=== PATIENT | female | born 1980 | race Caucasian/White ===

== ENCOUNTER 2020-08-11 10:14 | Emergency (ER) | payer OTHER, SELFPAY ==
--- NOTE | ~2020-08-11 | US_ITS ---
EXAMINATION: US pelvic complete w TV EXAM DATE: 08/11/2020 14:51 INDICATION: Pelvic pain. Abnormal CT. TECHNIQUE: Pelvic transabdominal and transvaginal sonogram was performed. There are multiple graysca le and Doppler images available for interpretation. Comparison is made to prior examination from 07/26. FINDINGS: Uterus measures 8.9 x 4.9 x 4.1 cm, and is morphologically normal. Endometrial stripe clem sures 8 mm, within normal limits. There is no free pelvic fluid. Right adnexa: The ovary measures 3.9 x 3.9 x 3.6 cm and is morphologically normal, contains the domin ant physiologic follicle correlating to the CT finding. Ovarian vascular flow confirmed. Left adnexa: The ovary measures 2.3 x 2.4 x 1.7 cm and is morphologically normal. Ovarian vascular fl ow confirmed. IMPRESSION: 1. Unremarkable pelvic ultrasound exam. Reviewed, dictated and finalized at location A. 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
--- NOTE | ~2020-08-11 | CT_ITS ---
EXAMINATION: CT abdomen pelvis w con DATE: 08/11/2020 12:40 INDICATION: Low abdominal pain. Diarrhea. TECHNIQUE: Computed tomography (CT) of the abdomen and pelvis was performed with 100 mL Omnipaque 350 intravenous contrast. Automated exposure control and iterative reconstruction technique were employe d. The dose-length product was 819.03 mGy-cm. COMPARISON: CT abdomen and pelvis 02/14/2012 FINDINGS: The visualized portions of the lung bases are clear without pneumonia or pleural effusion. The heart size is normal. No pericardial effusion. The liver, gallbladder, pancreas, and left adrenal gland are normal. There is a chronic 13 mm mass in right adrenal gland, likely an adenoma. There is a chronic 4 mm low-attenuation mass in the spleen, likely granulomatous disease. The kidneys are norm al. There is a 3.3 cm mass in right ovary. There are no dilated loops of bowel. The appendix is sukhwinder l. There is trace pelvic ascites. There are no pathologically enlarged lymph nodes. There is mild lum bar spondylosis. IMPRESSION: 1. 3.3 cm mass in right ovary, likely a hemorrhagic cyst. Consider ultrasound. Reviewed, dictated and finalized at location A. 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
[2020-08-11 10:25] VITALS: BP 140/101; PULSE 80; RESP 20; TEMP 36.7; O2SAT 97
[2020-08-11 10:43] LABS: Basophils Percent Auto 0.4 % (0.2-1.2); Eosinophils Absolute Auto 0.2 K/mm3 (0-0.3); Eosinophils Percent Auto 1.7 % (0-4.4); Hemoglobin 16.1 g/dL (12.0-15.0); Immature Granulocyte Absolute 0.04 K/mm3 (0.00-0.031); Immature Granulocyte Percent A 0.4 % (0-0.5); Lymphocytes Absolute Auto 3.25 K/mm3 (0.9-3.2); Lymphocytes Percent Auto 32.1 % (18.3-44.2); Mean Corpuscular Hemoglobin 33.1 pg (26-34); Mean Corpuscular Volume 94.5 fl (80-100); Mean Platelet Volume 11.1 fl (7.4-10.4); Monocytes Absolute Auto 0.9 K/mm3 (0.1-0.6); Monocytes Percent Auto 9.1 % (2.6-8.5); Neutrophils Absolute Auto 5.7 K/mm3 (1.3-6.7); Neutrophils Percent Auto 56.3 % (45.5-73.1); Platelet Count Result 258 k/mm3 (150-375); Red Blood Count 4.87 M/mm3 (4.2-5.4); White Blood Count 10.1 K/mm3 (4.5-10.0)
[2020-08-11 10:52] LABS: Add Urine Microscopic? NO; Appearance Urine Clear (Clear); Bilirubin Urine Negative (Negative); Blood Urine Negative (Negative); Color Urine Yellow (Yellow); Glucose Urine UA Negative (Negative); Ketones Urine Negative (Negative); Leukocyte Esterase Ur Negative LEU/UL (Negative); Nitrate Urine Negative (Negative); Protein Urine Negative (Negative); Specific Grav Ur 1.017 (1.001-1.035); Urobilinogen Urine Negative mg/dL (<2.0)
[2020-08-11 10:52] LABS: Alanine Aminotransferase 24 U/L (4-35); Albumin Level 4.3 g/dL (3.5-5.1); Alkaline Phosphatase 76 U/L (38-126); Anion Gap 7 mmol/L (8-16); Aspartate Amino Transferase 24 U/L (14-36); Bilirubin,Total 0.3 mg/dL (0.2-1.3); Blood Urea Nitrogen 20 mg/dL (7-17); Calcium 9.4 mg/dL (8.4-10.2); Carbon Dioxide 23 mmol/L (22-30); Chloride 106 mmol/L (98-107); Estimated CRCL calculation 68 ml/min; Estimated Glomerular Filt Rate > 60; Glucose 106 mg/dL (65-105); Lipase 76 U/L (23-300); Potassium 4.9 mmol/L (3.4-5.0); Sodium 136 mmol/L (137-145)
[2020-08-11] MEDS: ONDANSETRON INJ 4 MG/2 ML VIAL IV PUSH (11:24)
[2020-08-11 12:30] VITALS: BP 137/96; PULSE 79; RESP 18; O2SAT 100
--- NOTE | 2020-08-11 15:09 | ED.GENADULT ---
HPI - General Adult General Chief complaint: Abdominal Pain Stated complaint: abd pain Time Seen by Provider: 08/11/20 10:40 Source: patient Mode of arrival: ambulatory Limitations: no limitations History of Present Illness HPI narrative: Patient presents with chief complaint of diffuse lower abdominal pain and diarrhea that began last night and increased at 3 AM to 930 this morning. Patient states she experiencing left cramping and pressure that relieves after a bowel movement. Patient states that her stools are liquid. Patient reports that she has not had any recent travel or eating any abnormal foods. Patient states that she ate the same thing as her that he is not ill. She denies fever, chills, vomiting, shortness of breath or chest pain. Patient reports that her primary care has diagnosed her with dumping syndrome which she occasionally has a lot of stool but she states that she feels that her symptoms this time are different. Related Data Allergies Allergy/AdvReac Type Severity Reaction Status Date / Time No Known Allergies Allergy Verified 08/11/20 15:16 Review of Systems Review of Systems: Narrative: CONSTITUTIONAL: Denies fever, chills, or sweats. EYES: Denies visual changes, redness, or discharge. ENT: Denies rhinorrhea, congestion, sore throat, or otalgia. CARDIOVASCULAR: Denies chest pain, palpitations, or edema. RESPIRATORY: Denies cough or dyspnea. GASTROINTESTINAL: Reports abdominal pain, nausea, or diarrhea. Denies vomiting GENITOURINARY: Denies dysuria or hematuria. SKIN: Denies rash or itching. MUSCULOSKELETAL: Denies back pain, joint pain, or myalgia. NEUROLOGIC: Denies headache, numbness, dizziness, or weakness. PSYCHIATRIC: Denies anxiety or depression. PMFSH Past Medical History Medical History (Updated 08/11/20 @ 15:16 by Erickson Green PA-C) Anxiety Irritable bowel Exam Narrative: Exam Narrative: GENERAL: Well-appearing, well-nourished, and in no acute distress. HEAD: Normocephalic, atraumatic. EYES: PERRLA and EOMI. NECK: Supple. No adenopathy or masses. No carotid bruits or JVD CHEST: Clear to auscultation. No respiratory distress. No wheezes rales or rhonchi HEART: Regular rate and rhythm. No murmur heard. Normal peripheral pulses. ABDOMEN: Soft, diffuse lower abdominal tenderness, nondistended, hyperactive active bowel sounds. EXTREMITIES: Normal range of motion. No edema. SKIN: Warm, dry, no rash. NEURO: No focal deficits. Alert and oriented x3. PSYCH: Normal mood and affect. Course Vital Signs Vital signs: Vital Signs Temperature 98.0 F 08/11/20 10:25 Pulse Rate 80 08/11/20 10:25 Respiratory Rate 20 08/11/20 10:25 Blood Pressure 140/101 H 08/11/20 10:25 Pulse Oximetry 97 08/11/20 10:25 Temperature 98.0 F 08/11/20 10:25 Pulse Rate 80 08/11/20 10:25 Respiratory Rate 20 08/11/20 10:25 Blood Pressure 140/101 H 08/11/20 10:25 Pulse Oximetry 97 08/11/20 10:25 Medical Decision Making MDM Narrative Medical decision making narrative: Patient reporting improvement in discomfort and nausea with Tylenol and Zofran however she persists that lower abdominal discomfort and pressure persist so she would like to have CT abdomen pelvis performed. CT abdomen pelvis does not show any colonic acute issues but does show possible right ovarian cyst. Consult with Dr. Evelyne Menjivar who states to obtain ultrasound to further investigate. He states if there are not any significant complications patient should be discharged home. Patient's ultrasound is normal. Patient will be diagnosed with gastroenteritis and given Zofran and Bentyl for symptoms and encouraged to drink fluids and follow-up with her primary care. Upon entering the room to discharge patient as the that she is in the bed eating fries and drinking soda. She has not had any additional diarrhea or vomiting since her time in emergency department. Patient is instructed to follow-up with her primary c
[2020-08-11 15:13] VITALS: BP 141/86; PULSE 82; RESP 18; O2SAT 100
[2020-08-12 00:04] LABS: SARS-CoV-2 RNA PCR Negative
== END 2020-08-11 15:42 | disposition home or self-care (01) ==
PROVIDERS: Physician Assistant; Emergency Provider Emergency Medicine; Referring Provider Internal Medicine
DX: K52.9 Noninfective gastroenteritis and colitis, unspecified (principal); Z20.828 Contact with and (suspected) exposure to other viral communicable diseases; K31.89 Other diseases of stomach and duodenum; N83.9 Noninflammatory disorder of ovary, fallopian tube and broad ligament, unspecified
CPT/HCPCS: 36415; 74177; 76830; 76856; 80053; 81003; 81025; 83690; 85025; 87635; 96365; 96375; 99284; C9803; J0131; J2405; Q9967; U0003

== ENCOUNTER 2020-09-30 09:39 | Outpatient (CLI) | payer OTHER, SELFPAY ==
--- NOTE | ~2020-09-30 | NM_ITS ---
EXAMINATION: NM hepatobiliary w pharm DATE: 09/30/2020 12:47 INDICATION: Unspecified abdominal pain. COMPARISON: CT abdomen and pelvis 08/11/2020 TECHNIQUE: 4.8 mCi Tc-99m mebrofenin (Choletec) was administered intravenously. Scintigraphic images of the abdomen were obtained for one hour. Then, 1.7 mcg sincalide (Kinevac) IV was administered, an d imaging was continued for 30 minutes. FINDINGS: There is normal clearance of radiotracer from the blood pool. There is homogeneous tracer u ptake by the liver. Activity progresses to the bowel and gallbladder. Gallbladder ejection fraction (GBEF) was 49%. Note that most patients with gallbladder dysfunction have GBEF < 35%, which overlaps with the broad normal range of 10-90%. IMPRESSION: 1. Normal hepatobiliary scintigraphy. Reviewed, dictated and finalized at location A. 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
== END 2020-09-30 09:40 | disposition home or self-care (01) ==
PROVIDERS: PCP Nurse Practitioner Adult Health; Visit Provider Nurse Practitioner Adult Health
DX: R10.9 Unspecified abdominal pain (principal)
CPT/HCPCS: 78227; A9537; J2805

== ENCOUNTER → 2021-01-22 15:45 | Outpatient (CLI) | payer OTHER, SELFPAY ==
--- NOTE | ~2021-01-22 | MM_ITS ---
EXAMINATION: MM screening armando BI w matheus HISTORY: Screening mammogram TECHNIQUE: Craniocaudal and mediolateral oblique 3-D tomosynthesis images were obtained and synthetic 2-D images were generated. CAD analysis was submitted and interpreted. COMPARISON: No prior mammogram is available for comparison at this institution. BREAST PARENCHYMAL COMPOSITION: There are scattered areas of fibroglandular density. FINDINGS: There is no evidence of suspicious mass, calcification, or architectural distortion to sugg est malignancy in either breast. IMPRESSION: 1. No mammographic evidence of malignancy. 2. Recommend routine screening mammography in one year. BI-RADS Category 1: Negative Reviewed, dictated and finalized at location A.
== END ==
PROVIDERS: PCP Nurse Practitioner Adult Health; Visit Provider Nurse Practitioner Adult Health
DX: Z12.31 Encounter for screening mammogram for malignant neoplasm of breast (principal)
CPT/HCPCS: 77063; 77067

== ENCOUNTER → 2021-10-21 01:19 | Outpatient (CLI) | payer OTHER, SELFPAY ==
[2021-10-21 18:23] LABS: SARS-CoV-2 RNA PCR Negative
== END ==
PROVIDERS: PCP Nurse Practitioner Adult Health; Visit Provider Nurse Practitioner Adult Health
DX: R68.89 Other general symptoms and signs (principal); Z20.822 Contact with and (suspected) exposure to COVID-19
CPT/HCPCS: C9803; U0003; U0005

== ENCOUNTER 2022-01-15 18:16 | Emergency (ER) | payer OTHER, SELFPAY ==
[2022-01-15 18:25] VITALS: BP 168/102; PULSE 89; RESP 18; TEMP 36.7; O2SAT 99
--- NOTE | 2022-01-15 18:31 | ED.URI ---
HPI - URI/Sore Throat General Chief Complaint: Upper Respiratory Infection Stated Complaint: Cough,Sore Throat Time Seen by Provider: 01/15/22 18:31 Source: patient Mode of arrival: ambulatory Limitations: no limitations History of Present Illness HPI Narrative: Jill Jessica is a 41 yo female with a PMH of HTN, migraines,anxiety, who comes to express care with c/o laryngitis and sore throat, coughing, can't sleep that started yesterday. Patient has secondary smoke exposure however told nurse that she also vapes However blood pressure is elevated; she did take her blood pressure medication today Related Data Home Medications Medication Instructions Recorded Confirmed amitriptyline 25 mg PO DAILY 01/15/22 01/15/22 amlodipine 5 mg PO DAILY 01/15/22 01/15/22 golimumab [Simponi ARIA] See Rx Instructions .ROUTE .COMPLEX 01/15/22 01/15/22 lisinopril 20 mg PO DAILY 01/15/22 01/15/22 methotrexate sodium 2.5 mg PO DAILY 01/15/22 01/15/22 Allergies Allergy/AdvReac Type Severity Reaction Status Date / Time hydroxychloroquine AdvReac Severe Hypertensio Verified 01/15/22 18:42 [From Plaquenil] n tramadol AdvReac Mild NAUSEA & Verified 01/15/22 18:40 HEADACHE Chocolate AdvReac Mild Rash Uncoded 01/15/22 18:40 Review of Systems Review of Systems: CONSTITUTIONAL: Denies fever, chills, sweats. EYES: Denies visual changes, redness, discharge. ENT: Denies rhinorrhea, has congestion, has sore throat, sores in her nose, no otalgia. CARDIOVASCULAR: Denies chest pain, palpitations, edema. RESPIRATORY: Denies dyspnea, wheezing, cough GASTROINTESTINAL: Denies abdominal pain, nausea, vomiting, diarrhea. GENITOURINARY: Denies dysuria, hematuria, abnormal discharge SKIN: Denies rash or itching. NEUROLOGIC: Denies numbness, or focal weakness. PSYCHIATRIC: Denies anxiety or depression. [facility] Past Medical History Medical History Anxiety Hypertension Irritable bowel Migraine Comments At time of signature, I agree with nursing past medical, surgical, social and family history. There is no relevant family history pertinent to the presenting complaint. Exam Narrative: GENERAL: This is a well-nourished, well-developed patient, in moderate distress. HEAD: normocephalic, atraumatic. EYES: Sclera clear/white. Vision is grossly intact. EARS: External ears normal, auditory canals wrythema with fluid behind TMs and without drainage, . Hearing grossly intact. NOSE: External nose normal without nasal discharge, nares with redness,has rhinorrhea. THROAT: Mucous membranes moist, posterior pharynx bright erythema NECK: Neck supple, non-tender CARDIOVASCULAR: Regular rate and rhythm without murmurs, gallops, or rubs. RESPIRATORY: Coarse to auscultation. Breath sounds equal bilaterally. No wheezes, rales, or rhonchi. GASTROINTESTINAL: Abdomen soft, non-tender, SKIN: warm, intact with no suspicious lesions or rash, good texture and turgor. NEURO: awake, alert, and oriented to person, place and time. There were no obvious focal neurologic abnormalities. Steady gait EXTREMITIES: Normal range of motion. BACK: Nontender without deformity Course Course Emergency Course: Patient comes with cough and sore throat x4 days and is not getting any better Strep test is negative, flu test is negative Started on steroids and Zithromax along with Tessalon Perles, continue use triple antibiotic ointment and nares for tenderness Level of Care: Express Care Visit Vital Signs Vital signs: Vital Signs Temperature 98.1 F 01/15/22 18:25 Pulse Rate 89 01/15/22 18:25 Respiratory Rate 18 01/15/22 18:25 Blood Pressure 168/102 H 01/15/22 18:25 Pulse Oximetry 99 01/15/22 18:25 Temperature 98.1 F 01/15/22 18:25 Pulse Rate 89 01/15/22 18:25 Respiratory Rate 18 01/15/22 18:25 Blood Pressure 168/102 H 01/15/22 18:25 Pulse Oximetry 99 01/15/22 18:25 MDM - URI/Sore
== END 2022-01-15 18:59 | disposition home or self-care (01) ==
PROVIDERS: Emergency Provider Nurse Practitioner; PCP Nurse Practitioner Adult Health
DX: J40 Bronchitis, not specified as acute or chronic (principal); I10 Essential (primary) hypertension
CPT/HCPCS: 87081; 87804; 87880; 99213; G0463

== ENCOUNTER 2022-05-16 01:01 | Day surgery (SDC) | payer OTHER, SELFPAY ==
[2022-05-16 07:19] VITALS: BP 125/82; PULSE 99; RESP 18; TEMP 36.2; O2SAT 98; BMI 30.5
[2022-05-16] MEDS: LACTATED RINGERS 1,000 ML 150 ML IV CONT (07:27)
--- NOTE | 2022-05-16 08:10 | WPDANESEPPF ---
Anes - Initial Pre Proc Eval Procedure: Operation Date: 05/16/22 08:30 Proposed Procedures p Colonoscopy - Oscar Moon MD s [facility] Hemorrhoid Treatment - Oscar Moon MD Date/Time: 05/16/22 08:10 Surgeon: Oscar Moon MD Pre Op Diagnosis: blood in stool, hemorrhoid Patient Data Age: 42 Gender: F Height: 1.65 m Weight: 83.3 kg Last Vital Signs Temp 97.1 F L 05/16/22 07:19 Pulse 99 05/16/22 07:19 Resp 18 05/16/22 07:19 BP 125/82 05/16/22 07:19 Pulse Ox 98 05/16/22 07:19 O2 Del Method Room Air 05/16/22 07:19 Allergies Allergy/AdvReac Type Severity Reaction Status Date / Time hydroxychloroquine AdvReac Severe Hypertensio Verified 05/16/22 07:18 [From Plaquenil] n tramadol AdvReac Mild NAUSEA & Verified 05/16/22 07:18 HEADACHE Chocolate AdvReac Mild Rash Uncoded 05/04/22 13:00 Home Medications Medication Instructions Recorded Confirmed Type amitriptyline 25 mg tablet 25 mg PO DAILY 01/15/22 05/04/22 History amlodipine 5 mg tablet 5 mg PO DAILY PRN Numbness 01/15/22 05/04/22 History lisinopril 20 mg tablet 20 mg PO DAILY 01/15/22 05/04/22 History methotrexate sodium 2.5 mg tablet 2.5 mg PO WEEKLY 01/15/22 05/04/22 History prednisone 20 mg tablet 40 mg PO DAILY #10 tabs 01/15/22 05/04/22 Rx folic acid 0.8 mg capsule 0.8 mg PO DAILY 03/24/22 05/04/22 History Patient hx anesthesia problems: none Family hx anesthesia problems: none Results Review: All pre-operative results and documents have been reviewed as part of the pre-operative evaluation. COUNTS INCLUDE 234 BEDS AT THE [facility] Past Medical History Medical History (Updated 03/24/22 @ 10:00 by Oscar Moon MD) Abdominal discomfort Anxiety Bloating Hematochezia Hemorrhoid Hypertension Irritable bowel Migraine Rheumatoid arthritis Surgical History Surgical History H/O foot surgery Family History Family History Father Colon polyp Skin cancer Mother Colon polyp Social History Social History Smoking packs per day: 1 Smoking cigarettes per day: 20.0 Smoking status: Former smoker Tobacco type: cigarettes Alcohol intake: never Substance use: never Substance use type: does not use Anes - Eval Final PreProcedure Day of Procedure 05/16/22 08:10 Patient weight: obese Heart: regular rate and rhythm Lungs: clear to auscultation Airway: Mallampati scale class II Neurological: alert and oriented Last oral intake: >/= 8 hours ASA classification: III Emergent: no Anesthetic plan: proceed Anesthesia type and monitoring: general GIVS and standard monitoring Results Review: All pre-operative results and documents have been reviewed as part of the pre-operative evaluation. Informed Consent: The patient's anesthetic plan and its attendant risks and benefits were discussed with the patient/family/POA. Questions were solicited and answers provided to the satisfaction of the patient/family/POA.
--- NOTE | 2022-05-16 08:20 | PM.HPGS ---
History of Present Illness History of Present Illness Consent: Risks, benefits, and alternatives have been discussed and questions answered. Patient agrees to proceed with procedure. Chief complaint: blood in stool, hemorrhoid Narrative: Jill Jessica is a 42 year old female with intermittent pain luq, loose stools and also blood in stool probably from hemorrhoids, last colonoscopy 2 years ago Review of Systems Constitutional: Constitutional: Denies headache(s) and Denies weakness Eyes: Eyes: Denies blurry vision ENT: Reports Normal hearing present, Denies headache(s) and Denies neck pain Cardiovascular: Cardiovascular: Denies chest pain and Denies dyspnea Respiratory: Respiratory: Denies dyspnea Gastrointestinal: Gastrointestinal: Reports no additional gastrointestinal complaints Genitourinary: Genitourinary: Denies dysuria Musculoskeletal: Musculoskeletal: Denies neck pain Integumentary/Breasts: Skin/Breast: Denies dry skin Neurologic: Reports Normal hearing present, Denies headache(s) and Denies weakness Psychiatric: Psychiatric: Denies anxiety Endocrine: Endocrine: Denies change in body appearance Hematologic/Lymphatic: Hematologic/Lymphatic: Denies easy bleeding Allergic/Immunologic: Allergic/Immunologic: Denies urticaria PMFSH Past Medical History Medical History (Updated 05/16/22 @ 08:21 by Oscar Moon MD) Abdominal discomfort Anxiety Bloating Diarrhea Hematochezia Hemorrhoid Hypertension Irritable bowel Migraine Rheumatoid arthritis Surgical History Surgical History H/O foot surgery Family History Family History Father Colon polyp Skin cancer Mother Colon polyp Social History Social History Smoking packs per day: 1 Smoking cigarettes per day: 20.0 Smoking status: Former smoker Tobacco type: cigarettes Alcohol intake: never Substance use: never Substance use type: does not use Meds Home Medications and Allergies Home Medications Medication Instructions Recorded Confirmed Type amitriptyline 25 mg tablet 25 mg PO DAILY 01/15/22 05/04/22 History amlodipine 5 mg tablet 5 mg PO DAILY PRN Numbness 01/15/22 05/04/22 History lisinopril 20 mg tablet 20 mg PO DAILY 01/15/22 05/04/22 History methotrexate sodium 2.5 mg tablet 2.5 mg PO WEEKLY 01/15/22 05/04/22 History prednisone 20 mg tablet 40 mg PO DAILY #10 tabs 01/15/22 05/04/22 Rx folic acid 0.8 mg capsule 0.8 mg PO DAILY 03/24/22 05/04/22 History Allergies Allergy/AdvReac Type Severity Reaction Status Date / Time hydroxychloroquine AdvReac Severe Hypertensio Verified 05/16/22 07:18 [From Plaquenil] n tramadol AdvReac Mild NAUSEA & Verified 05/16/22 07:18 HEADACHE Chocolate AdvReac Mild Rash Uncoded 05/04/22 13:00 Vital Signs Vital Signs - 24 hr 05/16/22 07:19 Temperature 97.1 F L Pulse Rate 99 Respiratory Rate 18 Blood Pressure 125/82 Pulse Oximetry 98 Oxygen Delivery Room Air Exam Const: General: comfortable and no acute distress HENMT: General nose exam: Normal nares present Eyes: General: appearance normal, both eyes and all related structures Neck: Neck: no JVD Resp: Auscultation: clear to auscultation bilaterally Cardio: Rate: regular rate Rhythm: regular rhythm GI: Inspection: non-distended GI Palp: Yes Soft to palpation Skin: General skin exam: normal color Neuro: General: gait normal Speech: normal speech Extrem: General: normal to inspection Psych: Mental Status: mental status grossly normal Assessment and Plan Assessment and plan (1) Hemorrhoid: Code(s): K64.9 - Unspecified hemorrhoids Status: Acute Assessment and Plan: will treat internal hemorrhoids with irc (2) Diarrhea: Code(s): R19.7 - Diarrhea, unspecif
--- NOTE | 2022-05-16 08:57 | W.PM.PROC2 ---
Procedure Note - Detailed Date of Procedure 05/16/22 Pre-op Diagnosis blood in stool, hemorrhoid Post-op Diagnosis Same Procedure Performed IRC of internal hemorrhoids Surgeon Oscar Moon MD Description of Procedure I introduced anoscopy and found grade II internal hemorrhoids at 3-6 o'clock position, then IRC probe was advanced and hemorrhoids treated 1.5 seconds x6
[2022-05-16 08:58] VITALS: BP 113/80; PULSE 69; RESP 22; O2SAT 97
[2022-05-16 09:08] VITALS: BP 115/68; PULSE 66; RESP 21; O2SAT 97
[2022-05-16 09:18] VITALS: BP 109/76; PULSE 65; RESP 19; O2SAT 98
== END 2022-05-16 09:25 | disposition home or self-care (01) ==
PROVIDERS: PCP Nurse Practitioner Adult Health; Visit Provider Internal Medicine Gastroenterology
PROC: 0DJD8ZZ Inspection of Lower Intestinal Tract, Via Natural or Artificial Opening Endoscopic (ICD-10-PCS; CPT 45378; principal; 2022-05-16 08:30)
PROC: (CPT 46930; 2022-05-16 08:30)
DX: Z12.11 Encounter for screening for malignant neoplasm of colon (principal); D12.3 Benign neoplasm of transverse colon; K92.1 Melena; R19.7 Diarrhea, unspecified; R10.12 Left upper quadrant pain; K64.8 Other hemorrhoids; F41.9 Anxiety disorder, unspecified; I10 Essential (primary) hypertension; K58.9 Irritable bowel syndrome, unspecified; Z87.891 Personal history of nicotine dependence; K64.1 Second degree hemorrhoids
CPT/HCPCS: 45385; 45380; 46930; 88305; J2704; J7120

== ENCOUNTER 2023-05-18 08:27 | Outpatient (CLI) | payer OTHER, SELFPAY ==
--- NOTE | 2023-05-18 08:55 | ECG_ITS ---
Measurements Intervals [place] Rate: 67 P: 57 OR: 135 QRS: 51 QRSD: 112 T: 35 QT: 395 QTc: 418 Interpretive Statements SINUS RHYTHM LOW QRS VOLTAGE IN PRECORDIAL LEADS [QRS DEFLECTION < 1.0 mV IN CHEST LEADS] PROBABLE INFERIOR MYOCARDIAL INFARCTION [35 ms Q WAVE IN II/aVF], PROBABLY OLD NO PREVIOUS ECG AVAILABLE FOR COMPARISON Electronically Signed On 05-18-2023 11:01:35 CDT by Pam Donovan M.D.
== END 2023-05-18 08:28 | disposition home or self-care (01) ==
LOC: ANHSURGERY 08:30
PROVIDERS: PCP Nurse Practitioner Adult Health; Visit Provider Obstetrics & Gynecology
DX: N39.3 Stress incontinence (female) (male) (principal); Z01.818 Encounter for other preprocedural examination
CPT/HCPCS: 36415; 86850; 86900; 86901; 93005

== ENCOUNTER 2023-05-19 00:22 | Day surgery (SDC) | payer OTHER, SELFPAY ==
[2023-05-16 08:45] VITALS: BMI 31.1
--- NOTE | 2023-05-16 08:50 | PC.NURSE ---
Addendum entered by Michelle Rosas RN 05/18/23 08:41: PT INSTRUCTED WHILE HERE FOR PREOP TESTING 05/18 TO TAKE PROPANOLOL PREOP DAY OF SURGERY. Original Note: Report to the Outpatient Waiting Room, entrance under the green pavilion located off [facility], at time _0600_ on date _05/19/23. Planned Procedure Time: __0730. Time changes happen often and if your time is changed the preop area will call you the afternoon before. - You and your visitor will be asked to self-screen and do not enter if you have any COVID symptoms. - A mask is optional within the hospital at this time. Patients may have clear liquids (water, carbonated beverages, clear teas, apple juice) until 3 hours prior to surgery with a maximum of 20 ounces. - No food from midnight until time of surgery - Infants may have breast milk until 4 hours before surgery, infant formula 6 hours prior to surgery. - Children will be allowed to drink immediately following surgery. If applicable, please bring a bottle or sippy cup to assist with drinking. Juice, water, soda, and popsicles are readily available. For infants on formula, please bring formula the day of surgery. Pacifiers are allowed. Take the following medications with a SIP of water the morning of surgery: NONE____ DO NOT STOP ANY OF YOUR OTHER PRESCRIPTION MEDICATIONS PRIOR TO SURGERY ?EXCEPT THE FOLLOWING Medications to discontinue per physician FOLIC ACID Date to take last dose____05/16/23____ Please no make-up, nail bulgarian, hairspray, perfume, deodorant, or body powder the day of surgery. No jewelry (including any body piercings) or valuables the day of surgery, leave them at home. Please take a shower or bath the night before, or the morning of, surgery with an antibacterial soap. Wear comfortable, loose fitting clothing. Children are encouraged to wear pajamas. - Jewelry must be removed prior to entering the operating room. Rings and piercings that are not removed may be cut off. - The hospital will not accept responsibility for valuables. - Please leave all valuables, including medications, at home the day of surgery. If you are going home after surgery, a licensed full service vending driver must drive you home. - NO public transportation without another adult if you receive anesthesia. - We recommend that an adult stay with you for 24 hours following discharge. - We also recommend that you do not drive, make important decision, drink alcoholic beverages, or take any drugs that were not prescribed by your health care provider for at least 24 hours after your discharge time. For Pediatric surgeries, we recommend two adults accompany the child home. Follow any additional instructions given to you from your surgeon. If you or anyone in your household have experienced Covid symptoms in the past week, please notify your surgeon or the nurse liaison at the phone number below for possible testing. Telephone instructions given to ____PATIENT _and asked if any additional questions and then verbalized understanding. Patient advised to call surgeon office or pre surgery nurse liaison [phone] if any additional questions.
--- NOTE | 2023-05-17 06:52 | PM.IMHP ---
H&P: HPI History of Present Illness Date/Time: 05/17/23 06:52 Chief Complaint: Loss of urine with activity Narrative: This is a 2-year-old female admitted for tension-free vaginal tape to secondary to stress urinary incontinence. The patient loses urine with coughing laughing sneezing. She has tried Kegel exercises and nothing has been helpful. Risks and benefits of this procedure including mesh removed in injury bowel bladder ureters or other internal organs with need for open laparotomy reviewed. She received the tension-free vaginal tape and out. She had all questions answered and asked to proceed PMFSH Past Medical History Medical History Abdominal discomfort Anxiety Bloating Diarrhea Hematochezia Hemorrhoid Hypertension Irritable bowel Migraine Rheumatoid arthritis Rheumatoid arthritis Surgical History Surgical History H/O foot surgery Family History Family History Father Colon polyp Skin cancer Hypertension Disorder of thyroid Cerebrovascular accident Mother Colon polyp Asthma Heart disease COPD (chronic obstructive pulmonary disease) Son Hypertension Grandparent EtOH dependence Lung cancer Hypertension Grandparent Cerebrovascular accident Social History Social History Social History: Smoking packs per day: 1 Smoking cigarettes per day: 20.0 Years smoked: 10 Smoking pack-years: 10.00 Smoking status: Former smoker Second hand tobacco smoke exposure: No Alcohol intake: former Substance use: never Lack of Transportation: No Lack of Food: Never True Current Housing: I Have Housing Concerned About Future Housing: No Difficulty Paying Gas/Electric Bills: No Difficulty Paying for Meds: No Currently Unemployed: No Education: Decline to Answer Difficulty w/ Childcare or Family Care: No Living arrangements: with family Occupation/Education: occupation 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 Gender identity (if verbalized by the patient): Female Sexual Orientation (if Verbalized by the Patient): Straight or Heterosexual Agree to blood products: Yes Meds Home Medications and Allergies Home Medications Medication Instructions Recorded Confirmed Type lisinopril 20 mg tablet 20 mg PO DAILY 01/15/22 12/29/22 History amlodipine 5 mg tablet 5 mg PO .PM #90 tabs 12/29/22 12/29/22 Rx cyclobenzaprine 10 mg tablet 10 mg PO QHS 12/29/22 12/29/22 History folic acid 1 mg tablet 1 mg PO DAILY 12/29/22 12/29/22 History golimumab 12.5 mg/mL intravenous IV 12/29/22 12/29/22 History solution prednisone 5 mg tablet 15 mg PO DAILY PRN Pain 12/29/22 12/29/22 History phentermine 37.5 mg tablet 37.5 mg PO DAILY #30 tabs 04/20/23 04/20/23 Rx propranolol 40 mg tablet 40 mg PO Q12H #90 tabs 04/20/23 Rx methotrexate sodium 2.5 mg tablet 12.5 mg PO WEEKLY 05/16/23 05/16/23 History Allergies Allergy/AdvReac Type Severity Reaction Status Date / Time NSAIDS (Non-Steroidal Allergy Severe stomach Verified 04/20/23 10:35 Anti-Inflamma bleed hydroxychloroquine AdvReac Severe Hypertensio Verified 04/20/23 10:35 [From Plaquenil] n Chocolate AdvReac Mild Rash Uncoded 04/20/23 10:35 Exam Const: General: cooperative, healthy appearing and comfortable Nutritional Appearance: average body habitus Orientation/consciousness: oriented to person, oriented to place and oriented to time HENMT: Head: normal to inspection Resp: Effort & Inspection: normal respiratory effort Cardio: Rate: regular rate Rhythm: regular rhythm Heart sounds: S1 normal heart sound present and S2 normal heart sound present GI: Inspection: normal to inspection : External Female Exam: normal external appear
--- NOTE | 2023-05-18 11:51 | WPDANESEPPF ---
Anes - Initial Pre Proc Eval Procedure: Operation Date: 05/19/23 07:30 Proposed Procedures p Tension Free Vaginal Taping - Dangelo Menjivar MD Date/Time: 05/18/23 11:51 Surgeon: Dangelo Menjivar MD Pre Op Diagnosis: OLIVIA Patient Data Age: 43 Gender: F Height: 1.65 m Weight: 85 kg Allergies Allergy/AdvReac Type Severity Reaction Status Date / Time NSAIDS (Non-Steroidal Allergy Severe stomach Verified 05/19/23 06:19 Anti-Inflamma bleed hydroxychloroquine AdvReac Severe Hypertensio Verified 05/19/23 06:19 [From Plaquenil] n Chocolate AdvReac Mild Rash Uncoded 05/19/23 06:19 Home Medications Medication Instructions Recorded Confirmed Type lisinopril 20 mg tablet 20 mg PO DAILY 01/15/22 05/19/23 History amlodipine 5 mg tablet 5 mg PO .PM #90 tabs 12/29/22 05/19/23 Rx cyclobenzaprine 10 mg tablet 10 mg PO QHS 12/29/22 05/19/23 History folic acid 1 mg tablet 1 mg PO DAILY 12/29/22 05/19/23 History golimumab 12.5 mg/mL intravenous IV 12/29/22 12/29/22 History solution prednisone 5 mg tablet 15 mg PO DAILY PRN Pain 12/29/22 05/19/23 History phentermine 37.5 mg tablet 37.5 mg PO DAILY #30 tabs 04/20/23 05/19/23 Rx methotrexate sodium 2.5 mg tablet 12.5 mg PO WEEKLY 05/16/23 05/17/23 History propranolol 40 mg tablet 40 mg PO Q12H PRN migraines 05/17/23 05/19/23 History hydrocodone 5 mg-acetaminophen 325 1 tablet PO Q4H PRN pain #20 tabs 05/19/23 Rx mg tablet Patient hx anesthesia problems: none Family hx anesthesia problems: none Results Review: All pre-operative results and documents have been reviewed as part of the pre-operative evaluation. [facility] Past Medical History Medical History Abdominal discomfort Anxiety Bloating Diarrhea Hematochezia Hemorrhoid Hypertension Irritable bowel Migraine Rheumatoid arthritis Rheumatoid arthritis Surgical History Surgical History H/O foot surgery Family History Family History Father Colon polyp Skin cancer Hypertension Disorder of thyroid Cerebrovascular accident Mother Colon polyp Asthma Heart disease COPD (chronic obstructive pulmonary disease) Son Hypertension Grandparent EtOH dependence Lung cancer Hypertension Grandparent Cerebrovascular accident Social History Social History Social History: Smoking packs per day: 1 Smoking cigarettes per day: 20.0 Years smoked: 10 Smoking pack-years: 10.00 Smoking status: Former smoker Second hand tobacco smoke exposure: No Alcohol intake: former Substance use: never Lack of Transportation: No Lack of Food: Never True Current Housing: I Have Housing Concerned About Future Housing: No Difficulty Paying Gas/Electric Bills: No Difficulty Paying for Meds: No Currently Unemployed: No Education: Decline to Answer Difficulty w/ Childcare or Family Care: No Living arrangements: with family Occupation/Education: occupation 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 Gender identity (if verbalized by the patient): Female Sexual Orientation (if Verbalized by the Patient): Straight or Heterosexual Agree to blood products: Yes Anes - Eval Final PreProcedure Day of Procedure 05/18/23 11:51 Patient weight: obese Heart: regular rate and rhythm Lungs: clear to auscultation Airway: Mallampati scale class II Neurological: alert and oriented Last oral intake: >/= 8 hours ASA classification: III Emergent: no Anesthetic plan: proceed Anesthesia type and monitoring: general LMA and standard monitoring Results Review: All pre-operative results and documents have been reviewed as part of the pre-operative evaluation. Informed Consent: The patient's anesthetic plan and its attendan
[2023-05-19] VITALS (10 sets, daily range): BP systolic 105–148; BP diastolic 51–94; PULSE 60–98; RESP 15–20; TEMP 36.4–36.7; O2SAT 95–100
--- NOTE | 2023-05-19 06:27 | WPDHPUPDATE1 ---
History and Physical Update Update Date/Time: 05/19/23 06:27 History and Physical has been reviewed, including an updated exam of the patient. There are NO changes in the patient's condition. Risks, benefits, and alternatives have been discussed and questions answered. Patient agrees to proceed with procedure.
[2023-05-19] MEDS: LACTATED RINGERS 1,000 ML 30 ML IV CONT ×2 (06:29→09:23)
--- NOTE | 2023-05-19 06:42 | WPDANESEPPF ---
Anes - Initial Pre Proc Eval Procedure: Operation Date: 05/19/23 07:30 Proposed Procedures p Tension Free Vaginal Taping - Dangelo Menjivar MD Date/Time: 05/19/23 06:42 Surgeon: Dangelo Menjivar MD Pre Op Diagnosis: OLIVIA Patient Data Age: 43 Gender: F Height: 1.65 m Weight: 91 kg Last Vital Signs Temp 36.4 C 05/19/23 06:15 Pulse 79 05/19/23 06:15 Resp 18 05/19/23 06:15 BP 132/78 05/19/23 06:15 Pulse Ox 100 05/19/23 06:15 O2 Del Method Room Air 05/19/23 06:15 Allergies Allergy/AdvReac Type Severity Reaction Status Date / Time NSAIDS (Non-Steroidal Allergy Severe stomach Verified 05/19/23 06:19 Anti-Inflamma bleed hydroxychloroquine AdvReac Severe Hypertensio Verified 05/19/23 06:19 [From Plaquenil] n Chocolate AdvReac Mild Rash Uncoded 05/19/23 06:19 Home Medications Medication Instructions Recorded Confirmed Type lisinopril 20 mg tablet 20 mg PO DAILY 01/15/22 05/19/23 History amlodipine 5 mg tablet 5 mg PO .PM #90 tabs 12/29/22 05/19/23 Rx cyclobenzaprine 10 mg tablet 10 mg PO QHS 12/29/22 05/19/23 History folic acid 1 mg tablet 1 mg PO DAILY 12/29/22 05/19/23 History golimumab 12.5 mg/mL intravenous IV 12/29/22 12/29/22 History solution prednisone 5 mg tablet 15 mg PO DAILY PRN Pain 12/29/22 05/19/23 History phentermine 37.5 mg tablet 37.5 mg PO DAILY #30 tabs 04/20/23 05/19/23 Rx methotrexate sodium 2.5 mg tablet 12.5 mg PO WEEKLY 05/16/23 05/17/23 History propranolol 40 mg tablet 40 mg PO Q12H PRN migraines 05/17/23 05/19/23 History hydrocodone 5 mg-acetaminophen 325 1 tablet PO Q4H PRN pain #20 tabs 05/19/23 Rx mg tablet Patient hx anesthesia problems: none Family hx anesthesia problems: none Results Review: All pre-operative results and documents have been reviewed as part of the pre-operative evaluation. [facility] Past Medical History Medical History Abdominal discomfort Anxiety Bloating Diarrhea Hematochezia Hemorrhoid Hypertension Irritable bowel Migraine Rheumatoid arthritis Rheumatoid arthritis Surgical History Surgical History H/O foot surgery Family History Family History Father Colon polyp Skin cancer Hypertension Disorder of thyroid Cerebrovascular accident Mother Colon polyp Asthma Heart disease COPD (chronic obstructive pulmonary disease) Son Hypertension Grandparent EtOH dependence Lung cancer Hypertension Grandparent Cerebrovascular accident Social History Social History Social History: Smoking packs per day: 1 Smoking cigarettes per day: 20.0 Years smoked: 10 Smoking pack-years: 10.00 Smoking status: Former smoker Second hand tobacco smoke exposure: No Alcohol intake: former Substance use: never Lack of Transportation: No Lack of Food: Never True Current Housing: I Have Housing Concerned About Future Housing: No Difficulty Paying Gas/Electric Bills: No Difficulty Paying for Meds: No Currently Unemployed: No Education: Decline to Answer Difficulty w/ Childcare or Family Care: No Living arrangements: with family Occupation/Education: occupation 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
[2023-05-19] MEDS: ceFAZolin 2 GM/D5W 50 ML 2 GM/50 ML BAG IVPB (07:25)
[2023-05-19] MEDS: KETOROLAC 30 MG/ML VIAL (*BKC) IV PUSH (07:46)
--- NOTE | 2023-05-19 07:55 | P.OP_ITS ---
Procedure Note - Detailed Date of Procedure 05/19/23 Pre-op Diagnosis OLIVIA Post-op Diagnosis Same Procedure Performed Tension-free vaginal tape/cystoscopy Surgeon Dangelo Menjivar MD Anesthesia General Indications This is a 43-year-old female with stress urinary incontinence Findings Hyper your active urethra. Description of Procedure Patient was prepped draped in normal sterile fashion placed in the dorsal li thotomy position. Under excellent LMA anesthesia weighted speculum placed in posterior fornix vagina. The midportion below the urethra was incised and about a cm incision. The lateral bladder spaces were entered by blunt dissection with a P on clamped bilaterally. An 18 [place]e catheter was placed in the bladder drained clear urine. Urethra was retracted laterally and the left retropubic bladder space entered at a 45 degree angle upto30? through the fascia and skin. The urethra was then retracted the opposite direction and the right retropubic bladder space entered a 45 degree angle upto30? through the fashion skin. The tape was then pulled up to the tightness of an open pee on clamped and the plastic removed. The tape at the suprapubic area was cut at the skin level and the 70degree cystoscope was inserted with no injury seen. The catheter was then replaced the incision closed with a 0 chromic. Blood loss was estimated 25cc. All sponge, needle, instrument counts were correct. There were no immediate complications Implants Tension-free vaginal tape device Estimated Blood Loss 25 Drains No Packing No Pathology None sent Complications No immediate complications Condition Stable Disposition PACU
--- NOTE | 2023-05-19 08:28 | SUR.PHASEI ---
0828: Simple mask removed.
[2023-05-19] MEDS: fentaNYL CITRATE INJ (*CRX) 100 MCG/2 ML VIAL 25 MCG IV PUSH ×3 (09:17→09:30)
[2023-05-19] MEDS: oxyCODONE HCL (*CRX) 5 MG TAB IR PO (09:32)
== END 2023-05-19 10:20 | disposition home or self-care (01) ==
PROVIDERS: PCP Nurse Practitioner Adult Health; Visit Provider Obstetrics & Gynecology
PROC: 0TSD0ZZ Reposition Urethra, Open Approach (ICD-10-PCS; CPT 57288; principal; 2023-05-19 07:30)
DX: N39.3 Stress incontinence (female) (male) (principal); N39.490 Overflow incontinence; M06.9 Rheumatoid arthritis, unspecified; I10 Essential (primary) hypertension; Z79.620 Long term (current) use of immunosuppressive biologic; Z79.631 Long term (current) use of antimetabolite agent; Z87.891 Personal history of nicotine dependence; E66.9 Obesity, unspecified; Z68.33 Body mass index [BMI] 33.0-33.9, adult
CPT/HCPCS: 57288; 36415; 86850; 86900; 86901; 93005; A9270; C1771; J0690; J1100; J1885; J2250; J2405; J2704; J3010; J7030; J7120

== ENCOUNTER → 2023-07-05 12:45 | Outpatient (CLI) | payer OTHER, SELFPAY ==
--- NOTE | ~2023-07-05 | MM_ITS ---
EXAMINATION: MM screening armando BI w matheus HISTORY: Screening mammogram TECHNIQUE: Craniocaudal and mediolateral oblique 3-D tomosynthesis images were obtained and synthetic 2-D images were generated. CAD analysis was submitted and interpreted. COMPARISON: 01/22/2021 bilateral screening mammogram BREAST PARENCHYMAL COMPOSITION: There are scattered areas of fibroglandular density. FINDINGS: There is no evidence of suspicious mass, calcification, or architectural distortion to sugg est malignancy in either breast. There has been no suspicious interval change. IMPRESSION: 1. No mammographic evidence of malignancy. 2. Recommend routine screening mammography in one year. BI-RADS Category 1: Negative Reviewed, dictated and finalized at location A.
== END ==
PROVIDERS: PCP Nurse Practitioner Adult Health; Visit Provider Family Medicine
DX: Z12.31 Encounter for screening mammogram for malignant neoplasm of breast (principal)
CPT/HCPCS: 77063; 77067

== ENCOUNTER 2023-10-05 14:43 | Outpatient (CLI) | payer OTHER, SELFPAY ==
--- NOTE | ~2023-10-05 | XR_ITS ---
XR shoulder RT min 2V DATE: 10/05/2023 14:53 INDICATION: Right shoulder pain for 2 months, limited range of motion. No known injury. TECHNIQUE: 4 views COMPARISON: None FINDINGS: No fracture or dislocation, periosteal reaction or bone destruction or abnormal soft tissue calcification. IMPRESSION: No significant abnormality Reviewed, dictated and finalized at location L. 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
== END 2023-10-05 14:44 | disposition home or self-care (01) ==
LOC: ANHBWCIMG 14:44
PROVIDERS: PCP Nurse Practitioner Adult Health; Visit Provider Nurse Practitioner Adult Health
DX: M25.511 Pain in right shoulder (principal)
CPT/HCPCS: 73030

== ENCOUNTER 2023-11-21 08:38 | Outpatient (CLI) | payer OTHER, SELFPAY ==
--- NOTE | ~2023-11-21 | MR_ITS ---
MRI of the right shoulder Technique: Axial proton-density fat-sat images, coronal proton density fat-sat and T2 fat-sat images, and sagittal T1-weighted and T2 fat-sat images were acquired. Clinical History: Pain Findings: There is gpuq-vo-vzmamzga AC joint degenerative change, with fluid in the joint space. No s ubacromial spur present. Coracoclavicular, coracoacromial, and coracohumeral ligaments are intact. Supraspinatus and infraspinatus tendons are intact, without partial or full-thickness tear. Subscapul heriberto tendon is intact. Tendon of long head of the biceps is intact. No labral tear evident. Inferior glenohumeral ligament is intact. No degenerative change or effusion of the glenohumeral join t. No fluid distention of the subacromial/subdeltoid bursa. No muscle atrophy or edema. Impression: Mild to moderate AC joint degenerative change. No rotator cuff tear or labral tear. Reviewed, dictated and finalized at location . Impression: Mild to moderate AC joint degenerative change. No rotator cuff tear or labral tear.
== END 2023-11-21 08:39 | disposition home or self-care (01) ==
PROVIDERS: PCP Nurse Practitioner Adult Health; Visit Provider Physician Assistant Surgical
DX: M19.011 Primary osteoarthritis, right shoulder (principal)
CPT/HCPCS: 73221

== ENCOUNTER 2024-02-28 09:03 | Outpatient (CLI) | payer OTHER, SELFPAY ==
--- NOTE | ~2024-02-28 | MM_ITS ---
EXAMINATION: MM diagnostic armando BI w matheus HISTORY: Breast pain TECHNIQUE: Additional 3-D tomosynthesis images of the breasts were performed and synthetic 2-D images were generated. CAD analysis was submitted and interpreted. COMPARISON: Comparison to multiple prior studies sequentially, with oldest reviewed study dated 01/22. BREAST PARENCHYMAL COMPOSITION: Not dense: There are scattered areas of fibroglandular density. FINDINGS: There are no suspicious masses, calcifications or architectural distortion in either breast to suggest malignancy. IMPRESSION: 1. No evidence for malignancy in either breast. 2. Routine yearly screening mammogram and regular clinical breast examination are recommended. BI-RADS Category 1: Negative Reviewed, dictated and finalized at location B. IMPRESSION: 1. No evidence for malignancy in either breast. 2. Routine yearly screening mammogram and regular clinical breast examination a re recommended. BI-RADS Category 1: Negative
== END 2024-02-28 09:04 | disposition home or self-care (01) ==
LOC: ANHIMG 09:07
PROVIDERS: PCP Nurse Practitioner Adult Health; Visit Provider Obstetrics & Gynecology
DX: R92.8 Other abnormal and inconclusive findings on diagnostic imaging of breast (principal)
CPT/HCPCS: 77062; 77066; G0279

== ENCOUNTER 2024-03-04 09:00 | Emergency (ER) | payer OTHER, SELFPAY ==
[2024-03-04 09:07] VITALS: BP 122/93; PULSE 106; RESP 20; TEMP 38.1; O2SAT 99
--- NOTE | 2024-03-04 09:11 | ED.FEVER ---
HPI - Fever General Chief Complaint: Fever Stated Complaint: bodyaches fever chills Time Seen by Provider: 03/04/24 09:06 Source: patient Mode of arrival: ambulatory Limitations: no limitations History of Present Illness HPI Narrative: Jill is a 44-year-old female presenting to the ER today with complaints of fever, chills, body aches, sore throat, nausea, vomiting, and abdominal discomfort x3 days. States she had COVID a few weeks ago. Temperature is high as 103. Has been taking Tylenol for her symptoms. Last dose of Tylenol was 2 hours prior to arrival. States can not take NSAIDs due to GI bleed. Temp in the ER is 38.1 denies any chest pain or shortness of breath. Related Data Home Medications Medication Instructions Recorded Confirmed folic acid 1 mg tablet 1 mg PO DAILY 12/29/22 02/28/24 golimumab 12.5 mg/mL intravenous IV 12/29/22 02/28/24 solution methotrexate sodium 2.5 mg tablet 12.5 mg PO WEEKLY 05/16/23 02/28/24 cyclobenzaprine 10 mg tablet 10 mg PO QHS PRN 02/28/24 02/28/24 prednisone 5 mg tablet 2.5 mg PO DAILY PRN Pain 02/28/24 02/28/24 Allergies Allergy/AdvReac Type Severity Reaction Status Date / Time NSAIDS (Non-Steroidal Allergy Severe stomach Verified 02/28/24 10:01 Anti-Inflamma bleed hydroxychloroquine AdvReac Severe Hypertensio Verified 02/28/24 10:01 [From Plaquenil] n pcn Allergy Intermediate Blister Uncoded 11/01/23 11:10 Chocolate AdvReac Mild Rash Uncoded 11/01/23 11:10 Review of Systems Review of Systems: Pertinent positives per HPI. Patient denies any rash, headache, visual changes, dizziness, cough, shortness of breath, chest pain, palpitations, nausea, vomiting, diarrhea, constipation, abdominal pain, or any urinary issues. [facility] Past Medical History Medical History Abdominal discomfort Anxiety Bloating Diarrhea Hematochezia Hemorrhoid Hypertension Irritable bowel Migraine Rheumatoid arthritis Rheumatoid arthritis Surgical History Surgical History H/O foot surgery Family History Family History Father Colon polyp Skin cancer Hypertension Disorder of thyroid Cerebrovascular accident Mother Colon polyp Asthma Heart disease COPD (chronic obstructive pulmonary disease) Son Hypertension Grandparent EtOH dependence Lung cancer Hypertension Grandparent Cerebrovascular accident Social History Social History Social History: Smoking packs per day: 1 Smoking cigarettes per day: 20.0 Years smoked: 10 Smoking pack-years: 10.00 Smoking status: Former smoker Second hand tobacco smoke exposure: No Alcohol intake: former Substance use: never Do You Feel Safe in your Home?: Yes Lack of Transportation: No Lack of Food: Never True Current Housing: I Have Housing Concerned About Future Housing: No Difficulty Paying Gas/Electric Bills: No Difficulty Paying for Meds: No Currently Unemployed: No Education: Decline to Answer Difficulty w/ Childcare or Family Care: No Living arrangements: with family Occupation/Education: occupation 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 There is no relevant family history pertinent to the patient complaint. Exam Narrative: General: Well-developed, well nourished, in no apparent distress Head: Normocephalic, atraumatic Eyes: Pupils equally round and reactive to light bilaterally, EOM intact, sclera and co
[2024-03-04 09:13] VITALS: RESP 20; O2SAT 99
[2024-03-04 10:00] LABS: Strep Group A RT-PCR DETECTED (Negative)
[2024-03-04 10:05] LABS: Influenza A QL RT-PCR Negative (Negative); Influenza B QL RT-PCR Negative (Negative); RSV RNA, RT-PCR Negative (Negative); SARS-CoV-2 RNA PCR Negative (Negative)
[2024-03-04 10:30] VITALS: BP 118/78; PULSE 102; RESP 18; TEMP 37.9; O2SAT 100
== END 2024-03-04 10:32 | disposition home or self-care (01) ==
LOC: ANHED 10:25
PROVIDERS: Emergency Provider Nurse Practitioner Family; PCP Nurse Practitioner Adult Health
DX: J02.0 Streptococcal pharyngitis (principal); Z20.822 Contact with and (suspected) exposure to COVID-19; I10 Essential (primary) hypertension; K58.9 Irritable bowel syndrome, unspecified; M06.9 Rheumatoid arthritis, unspecified; Z86.16 Personal history of COVID-19; Z87.891 Personal history of nicotine dependence
CPT/HCPCS: 87637; 87651; 99283

== ENCOUNTER 2024-03-21 01:07 | Day surgery (SDC) | payer OTHER, SELFPAY ==
[2024-03-14 15:41] VITALS: BMI 29.9
--- NOTE | 2024-03-14 15:47 | PC.NURSE ---
Addendum entered by Nayan Booker RN 03/14/24 15:59: Do not take semeglutide this monday03-18-2024. Original Note: Report to the Outpatient Waiting Room, entrance under the green pavilion located off [facility], at time _0830_ on date _[id number]_. Planned Procedure Time: _1030_. Time changes happen often and if your time is changed the preop area will call you the afternoon before. - You and your visitor will be asked to self-screen and do not enter if you have any COVID symptoms. - A mask is optional within the hospital at this time. Patients may have clear liquids (water, carbonated beverages, clear teas, apple juice) until 3 hours prior to surgery with a maximum of 20 ounces. - No food from midnight until time of surgery Take the following medications with a SIP of water the morning of surgery: __Prednisone DO NOT STOP ANY OF YOUR OTHER PRESCRIPTION MEDICATIONS PRIOR TO SURGERY ?EXCEPT THE FOLLOWING Medications to discontinue per physician Folic acid Date to take last qdic___[id number] Please no make-up, nail hong konger, hairspray, perfume, deodorant, or body powder the day of surgery. No jewelry (including any body piercings) or valuables the day of surgery, leave them at home. Please take a shower or bath the night before, or the morning of, surgery with an antibacterial soap. Wear comfortable, loose fitting clothing. - Jewelry must be removed prior to entering the operating room. Rings and piercings that are not removed may be cut off. - The hospital will not accept responsibility for valuables. - Please leave all valuables, including medications, at home the day of surgery. If you are going home after surgery, a licensed lyft driver must drive you home. - NO public transportation without another adult if you receive anesthesia. - We recommend that an adult stay with you for 24 hours following discharge. - We also recommend that you do not drive, make important decision, drink alcoholic beverages, or take any drugs that were not prescribed by your health care provider for at least 24 hours after your discharge time. Follow any additional instructions given to you from your surgeon. If you or anyone in your household have experienced Covid symptoms in the past week, please notify your surgeon or the nurse liaison at the phone number below for possible testing. Telephone instructions given to _Liz__and asked if any additional questions and then verbalized understanding. Patient advised to call surgeon office or pre surgery nurse liaison [phone] if any additional questions.
[2024-03-21] VITALS (11 sets, daily range): BP systolic 92–143; BP diastolic 58–95; PULSE 70–84; RESP 8–27; TEMP 36.4–36.6; O2SAT 98–100
--- NOTE | ~2024-03-21 | XR_ITS ---
XR shoulder RT min 2V Ordering provider: Mikie Dawn MD History: . DISTAL CLAVICLE EXCISION . Comparison: None. FINDINGS: BONES: No acute fracture or dislocation. Postoperative changes in the distal clavicle. JOINT SPACES: The acromioclavicular joint is normal. The glenohumeral joint is normal. SOFT TISSUES: Normal. IMPRESSION: No acute osseous abnormality right shoulder. Reviewed, dictated and finalized at location A.
--- NOTE | 2024-03-21 07:17 | WPDHPUPDATE1 ---
History and Physical Update Update Date/Time: 03/21/24 07:17 History and Physical has been reviewed, including an updated exam of the patient. There are NO changes in the patient's condition. Risks, benefits, and alternatives have been discussed and questions answered. Patient agrees to proceed with procedure.
[2024-03-21] MEDS: ACETAMINOPHEN 500 MG TABLET 1000 MG PO (08:45)
[2024-03-21] MEDS: LACTATED RINGERS 1,000 ML 30 ML IV CONT ×2 (08:50→11:48)
--- NOTE | 2024-03-21 09:15 | WPDANESEPPF ---
Anes - Initial Pre Proc Eval Procedure: Operation Date: 03/21/24 10:30 Proposed Procedures p Right Arthroscopic Distal Clavicle Excision with Subacromial Decompression - Mikie Dawn MD Date/Time: 03/21/24 09:15 Surgeon: Mikie Dawn MD Pre Op Diagnosis: Acromial clavicular joint arthritis right shoulder Patient Data Age: 44 Gender: F Height: 1.65 m Weight: 82.3 kg Last Vital Signs Temp 36.6 C 03/21/24 08:39 Pulse 84 03/21/24 08:39 Resp 18 03/21/24 08:39 BP 128/90 03/21/24 08:39 Pulse Ox 99 03/21/24 08:39 O2 Del Method Room Air 03/21/24 08:39 Allergies Allergy/AdvReac Type Severity Reaction Status Date / Time NSAIDS (Non-Steroidal Allergy Severe stomach Verified 03/21/24 09:01 Anti-Inflamma bleed hydroxychloroquine AdvReac Severe Hypertensio Verified 03/21/24 09:01 [From Plaquenil] n tramadol AdvReac Intermediate Nausea Verified 03/21/24 09:01 Chocolate AdvReac Mild Rash Uncoded 03/21/24 09:01 Home Medications Medication Instructions Recorded Confirmed Type folic acid 1 mg tablet 1 mg PO DAILY 12/29/22 03/21/24 History methotrexate sodium 2.5 mg tablet 12.5 mg PO WEEKLY 05/16/23 03/21/24 History lisinopril 20 mg tablet 20 mg PO DAILY #90 tabs 07/13/23 03/21/24 Rx semaglutide (weight loss) 0.25 0.25 mg (0.5 mL) subcut WEEKLY #2 09/05/23 03/21/24 Rx mg/0.5 mL subcutaneous pen mL injector ([facility]eg[facility]) semaglutide (weight loss) 0.5 0.5 mg (0.5 mL) subcut WEEKLY #2 mL 09/05/23 03/21/24 Rx mg/0.5 mL subcutaneous pen injector (Wegovy) semaglutide (weight loss) 1 mg/0.5 1 mg (0.5 mL) subcut WEEKLY #2 mL 01/03/24 03/21/24 Rx mL subcutaneous pen injector (Wegovy) semaglutide (weight loss) 1.7 1.7 mg (0.75 mL) subcut WEEKLY #3 01/30/24 03/21/24 Rx mg/0.75 mL subcutaneous pen mL injector (Wegovy) propranolol 40 mg tablet 40 mg PO Q12H PRN migraines #90 02/26/24 03/21/24 Rx tabs semaglutide (weight loss) 2.4 2.4 mg (0.75 mL) subcut WEEKLY #3 02/27/24 03/21/24 Rx mg/0.75 mL subcutaneous pen mL injector (Wegovy) cyclobenzaprine 10 mg tablet 10 mg PO QHS PRN Spasms 02/28/24 03/21/24 History prednisone 5 mg tablet 2.5 mg PO DAILY PRN Pain 02/28/24 03/21/24 History Patient hx anesthesia problems: none Family hx anesthesia problems: none Results Review: All pre-operative results and documents have been reviewed as part of the pre-operative evaluation. [facility] Past Medical History Medical History Abdominal discomfort Anxiety Bloating Diarrhea Hematochezia Hemorrhoid Hypertension Irritable bowel Migraine Rheumatoid arthritis Rheumatoid arthritis Surgical History Surgical History H/O foot surgery Family History Family History Father Colon polyp Skin cancer Hypertension Disorder of thyroid Cerebrovascular accident Mother Colon polyp Asthma Heart disease COPD (chronic obstructive pulmonary disease) Son Hypertension Grandparent EtOH dependence Lung cancer Hypertension Grandparent Cerebrovascular accident Social History Social History Social History: Smoking packs per day: 1 Smoking cigarettes per day: 20.0 Years smoked: 10 Smoking pack-years: 10.00 Smoking status: Never smoker Second hand tobacco smoke exposure: No Alcohol intake: former Substance use: never Do You Feel Safe in your Home?: Yes Lack of Transportation: No Lack of Food: Never True Current Housing: I Have Housing Concerned About Future Housing: No Difficulty Paying Gas/Electric Bills: No Difficulty Paying for Meds: No Currently Unemployed: No Education: Decline to Answer Difficulty w/ Childcare or Family Care: No Living arrangements: with family Occupation/Educ
[2024-03-21] MEDS: ceFAZolin 2 GM/D5W 50 ML 2 GM/50 ML BAG IVPB (10:10)
[2024-03-21] MEDS: BUPIVACAINE/EPINEPHRINE 0.5% 10 ML VIAL 20 ML INFILTRATE (11:03)
[2024-03-21] MEDS: EPINEPHrine HCL INJ 1 MG/ML AMPUL 3 MG IRRIGATION (11:09)
[2024-03-21] MEDS: fentaNYL CITRATE INJ (*CRX) 100 MCG/2 ML VIAL 25 MCG IV PUSH ×8 (12:08→12:34)
--- NOTE | 2024-03-21 12:41 | W.PM.PROC2 ---
Procedure Note - Detailed Date of Procedure 03/21/24 Pre-op Diagnosis Right shoulder 1. Acromial clavicular joint arthritis right shoulder 2. Impingement syndrome Post-op Diagnosis Same Procedure Performed Right shoulder 1. Arthroscopic distal clavicle excision 2. Subacromial decompression Surgeon Mikie Dawn MD Wheel Truing Machine Tender Jill Gonzales PA-C Anesthesia General Indications Severe pain with impingement. Subacromial spur and severe AC joint arthrosis. Clinical findings consistent with AC joint arthritis and impingement. Findings Minimal splitting of the upper subscapularis without actual tear or retraction. The biceps was intact with minimal 5% fraying. The supraspinatus showed a 10% articular sided tearing. The cuff was gently debrided. The articular cartilage showed mild grade 1 chondromalacia on the central humerus. The labrum was intact. The biceps anchor was normal. There was hyperemia of the rotator cuff medially. The AC joint arthrosis was significant. There was a large prominent spur at the anterolateral corner of acromion. This was treated with acromioplasty and distal clavicle excision arthroscopically. The bursal side rotator cuff appeared healthy. Description of Procedure Preoperative antibiotics were given. The patient was brought to the operating room. Careful positioning in the beach chair was accomplished. The head neck were carefully positioned. A small bump was placed under the left shoulder. The shoulder was examined. The shoulder was prepped and draped in the usual sterile fashion. Standard posterior and anterior arthroscopic portals were established. The glenohumeral joint was inspected. Mild chondromalacia was noted on the humerus. This was at the central location. The rim of cartilage was stable. Minimal early fraying of the upper subscapularis splitting and anterior supraspinatus was treated with gentle debridement. The biceps was stable as it was pulled into the joint. There was a small area of subtle fraying. No significant hyperemia. The medial supraspinatus rotator cuff did have hyperemia. Attention was turned to the subacromial space. A complete bursectomy was performed. There was only very minimal evidence of impingement on the bursal rotator cuff, however there was a very large anterolateral subacromial spur. An accessory lateral portal was created. The acromion was clearly visualized. The coracoacromial ligament was released. Careful acromioplasty was performed utilizing views from both lateral and posterior. The distal clavicle was visualized and debrided with the arthroscopic bur. Approximately 1 cm of bone was removed. The 70 degree scope was used to confirm complete bony excision. Loose bone fragments were carefully irrigated from the joint. The arthroscopic instruments were removed. The wounds were closed with interrupted 3-0 Monocryl suture followed by Steri-Strips. A sterile dressing was applied with a sling. The patient was extubated and brought to the recovery room in stable condition. There were no complications. Physician physical therapy assistant instructor, Jill Odell PA-C, required for surgery; including patient positioning, draping, arthroscopic camera operation, maintaining instrument position, wound closure, and dressing and sling placement. Estimated Blood Loss 10 Drains No Packing No Pathology None sent Complications No immediate complications Condition Stable Disposition PACU [facility] Billing Surgery - Charge Forward: Surgery Billing
[2024-03-21] MEDS: HYDROmorphone HCL INJ (*CRX) 1 MG/ML SYR 0.5 MG IV PUSH ×2 (12:55→13:09)
[2024-03-21] MEDS: oxyCODONE HCL (*CRX) 5 MG TAB IR PO (13:40)
== END 2024-03-21 14:31 | disposition home or self-care (01) ==
PROVIDERS: PCP Nurse Practitioner Adult Health; Visit Provider Orthopaedic Surgery
PROC: (CPT 29805; principal; 2024-03-21 10:30)
DX: M19.011 Primary osteoarthritis, right shoulder (principal); M75.41 Impingement syndrome of right shoulder; M94.211 Chondromalacia, right shoulder; I10 Essential (primary) hypertension; M06.9 Rheumatoid arthritis, unspecified; Z79.85 Long-term (current) use of injectable non-insulin antidiabetic drugs; Z79.631 Long term (current) use of antimetabolite agent
CPT/HCPCS: 29824; 29823; 73030; A4565; A9270; J0171; J0690; J1100; J1170; J2250; J2405; J2704; J3010; J7120

== ENCOUNTER 2024-08-12 09:29 | Outpatient (CLI) | payer OTHER, SELFPAY ==
--- NOTE | 2024-08-12 09:41 | ECG_ITS ---
Test Date: 2024-08-12 09:51:44 Measurements Intervals Maxwell Rate: 76 P: 55 AR: 150 QRS: 46 QRSD: 109 T: 25 QT: 377 QTc: 426 Interpretive Statements SINUS RHYTHM LOW QRS VOLTAGE IN PRECORDIAL LEADS MINIMAL Q WAVES- INFERIOR LEADS BASELINE ARTIFACT- I, III, AVL, V1, V3-V6 BORDERLINE ECG No previous ECG available for comparison Electronically Signed On 08-12-2024 10:37:00 [employer] by Eliu Burrell D.O.
[2024-08-12 10:03] LABS: Basophils Percent Auto 0.5 % (0.2-1.2); Eosinophils Absolute Auto 0.1 K/mm3 (0-0.3); Eosinophils Percent Auto 1.5 % (0-4.4); Hematocrit 44.6 % (37.0-47.0); Hemoglobin 15.6 g/dL (12.0-15.0); Immature Granulocyte Absolute 0.03 K/mm3 (0.00-0.031); Immature Granulocyte Percent A 0.5 % (0-0.5); Lymphocytes Absolute Auto 3.08 K/mm3 (0.9-3.2); Lymphocytes Percent Auto 46.7 % (18.3-44.2); Mean Corpuscular Hemoglobin 32.5 pg (26-34); Mean Corpuscular Volume 92.9 fl (80-100); Mean Platelet Volume 11.2 fl (7.4-10.4); Monocytes Absolute Auto 0.6 K/mm3 (0.1-0.6); Monocytes Percent Auto 8.3 % (2.6-8.5); Neutrophils Absolute Auto 2.8 K/mm3 (1.3-6.7); Neutrophils Percent Auto 42.5 % (45.5-73.1); Platelet Count Result 244 k/mm3 (150-375); White Blood Count 6.6 K/mm3 (4.5-10.0)
== END 2024-08-12 09:30 | disposition home or self-care (01) ==
LOC: ANHSURGERY 09:33
PROVIDERS: PCP Nurse Practitioner Adult Health; Visit Provider Obstetrics & Gynecology
DX: N81.4 Uterovaginal prolapse, unspecified (principal); I10 Essential (primary) hypertension; Z01.818 Encounter for other preprocedural examination
CPT/HCPCS: 36415; 85025; 86850; 86900; 86901; 93005

== ENCOUNTER 2024-08-16 00:04 | Day surgery (SDC) | payer OTHER, SELFPAY ==
[2024-08-09 13:38] VITALS: BMI 28.7
--- NOTE | 2024-08-09 13:39 | PC.NURSE ---
Report to the Outpatient Waiting Room, entrance under the green pavilion located off [facility], at time _0730_ on date _[id number]_. Planned Procedure Time: _0930_.? Time changes happen often and if your time is changed the preop area will call you the afternoon before. - You and your visitor will be asked to self-screen and do not enter if you have any COVID symptoms. Please call surgeon if you need to reschedule. - A mask is optional within the hospital at this time. Patients may have clear liquids (water, carbonated beverages, clear teas, apple juice) until 3 hours prior to surgery with a maximum of 20 ounces. - No food from midnight until time of surgery and no smoking. This includes no chewing gum, candy or mints. Take only the following medications with a SIP of water on the morning of surgery: __None___ DO NOT STOP ANY OF YOUR OTHER PRESCRIPTION MEDICATIONS PRIOR TO SURGERY EXCEPT THE FOLLOWING Medications to discontinue per physician Date to take last dose__Patient is holding Wegovy until after surgery. Last dose [id number]____ Please no make-up, nail belarusian, hairspray, perfume, deodorant, or body powder the day of surgery.? No jewelry (including any body piercings) or valuables the day of surgery, leave them at home.? Please take a shower or bath the night before, or the morning of, surgery with an antibacterial soap.? Wear comfortable, loose fitting clothing.? - Jewelry must be removed prior to entering the operating room.? Rings and piercings that are not removed may be cut off. - The hospital will not accept responsibility for valuables.? - Please leave all valuables, including medications, at home the day of surgery. If you are going home after surgery, a licensed corrugated fastener driver must drive you home.? - NO public transportation without another adult if you receive anesthesia. - We recommend that an adult stay with you for 24 hours following discharge. - We also recommend that you do not drive, make important decision, drink alcoholic beverages, or take any drugs that were not prescribed by your health care provider for at least 24 hours after your discharge time. Follow any additional instructions given to you from your surgeon. Telephone instructions given to __Liz__and asked if any additional questions and then verbalized understanding. Patient advised to call surgeon office or pre surgery nurse liaison [phone] if any additional questions.
--- NOTE | 2024-08-14 06:24 | PM.IMHP ---
H&P: HPI History of Present Illness Date/Time: 08/14/24 06:24 Chief Complaint: Pelvic pain/uterine prolapse/dyspareunia Narrative: This is a 4 year multiparous patient admitted for robotic hysterectomy bilateral salpingo-oophorectomy pelvic pain prolapse. She is adamant she would like ovaries understands this her menopausal psychologic and physiologic changes associated with that were reviewed in great detail. Risks and benefits of the procedure reviewed including but not exclusive of , aspiration pneumonia bleeding, transfusion, perforation injury to bowel, bladder, ureters, or other organs with need for open laparotomy. She received the hysterectomy as the de Jimmy. She questions answered and asked t to proceed Review of Systems Review of Systems: Pertinent positives per HPI. Patient denies any rash, headache, visual changes, dizziness, cough, shortness of breath, chest pain, palpitations, nausea, vomiting, diarrhea, constipation, abdominal pain, or any urinary issues. PMFSH Past Medical History Medical History Abdominal discomfort Anxiety Bloating Diarrhea Hematochezia Hemorrhoid Hypertension Irritable bowel Migraine Rheumatoid arthritis Rheumatoid arthritis Surgical History Surgical History H/O foot surgery History of shoulder surgery (~03/21/24) Distal Clavicle Excision; Subacromial Decompression Rt Shoulder Family History Family History Father Colon polyp Skin cancer Hypertension Disorder of thyroid Cerebrovascular accident Mother Colon polyp Asthma Heart disease COPD (chronic obstructive pulmonary disease) Son Hypertension Grandparent EtOH dependence Lung cancer Hypertension Grandparent Cerebrovascular accident Social History Social History Social History: Smoking packs per day: 1 Smoking cigarettes per day: 20.0 Years smoked: 10 Smoking pack-years: 10.00 Smoking status: Former smoker Tobacco type: cigarettes Second hand tobacco smoke exposure: No Smoking end date: 10/09/19 Alcohol intake: former Substance use: never Do You Feel Safe in your Home?: Yes Lack of Transportation: No Lack of Food: Never True Current Housing: I Have Housing Concerned About Future Housing: No Difficulty Paying Gas/Electric Bills: No Difficulty Paying for Meds: No Currently Unemployed: No Education: Decline to Answer Difficulty w/ Childcare or Family Care: No Living arrangements: with family Occupation/Education: occupation 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 Gender identity (if verbalized by the patient): Female Sexual Orientation (if Verbalized by the Patient): Straight or Heterosexual Spiritual care concerns: No Agree to blood products: Yes Meds Home Medications and Allergies Home Medications Medication Instructions Recorded Confirmed Type methotrexate sodium 2.5 mg tablet 12.5 mg PO WEEKLY 05/16/23 08/09/24 History cyclobenzaprine 10 mg tablet 10 mg PO QHS PRN Spasms 02/28/24 08/09/24 History prednisone 5 mg tablet 2.5 mg PO DAILY PRN Pain 02/28/24 08/09/24 History lisinopril 20 mg tablet See Rx Instructions .Route 05/06/24 08/09/24 Rx .COMPLEX #90 tabs propranolol 40 mg tablet 40 mg PO Q12H PRN migraines #90 05/21/24 08/09/24 Rx tabs semaglutide (weight loss) 2.4 2.4 mg (0.75 mL) subcut WEEKLY #3 05/21/24 08/09/24 Rx mg/0.75 mL subcutaneous pen mL injector ([facility]) Allergies Allergy/AdvReac Type Severity Reaction Status Date / Time NSAIDS (Non-Steroidal Allergy Severe stomach Verified 08/09/24 13:30 Anti-Inflamma bleed hydroxychloroquine AdvReac Severe Hypertensio Verified 08/09/24 13:30 [From Plaquenil] n tramadol AdvReac Intermediate Nausea Verified 08/09/24 13:30 Chocolate AdvReac Mild Rash Uncoded 08/09/24 13:30 Exam Const: General: cooperative, healthy appearing, comfortable and overweight Orientation/consciousness: oriented to person, oriented to place and oriented to time HENMT: Head: normal to inspection Resp: Effort & Inspection: normal respiratory effort Cardio: Rate: regular rate Rhythm: regular rhythm Heart sounds: S1 normal heart sound present and S2 normal heart sound present GI: Inspection: normal to inspection : External Female Exam: normal external appearance Speculum Exam - Vagina: normal appearance of the vagina Speculum Exam - Cervix: normal appearance of the cervix (Second-degree prolapse is present) Bimanual exam- vagina & uterus: enlarged and Uterine tenderness Bimanual Exam- Adnexa, other: normal adnexae Assessment and Plan Assessment and plan (1) Uterine prolapse: Code(s): N81.4 - Uterovaginal prolapse, unspecified Status: Acute (2) Pelvic pain: Code(s): R10.2 - Pelvic and perineal pain Status: Acute Assessment and Plan: Proceed with robotic total hysterectomy bilateral salpingo-oophorectomy
[2024-08-16] VITALS (12 sets, daily range): BP systolic 102–123; BP diastolic 60–85; PULSE 51–77; RESP 12–20; TEMP 36–36.9; O2SAT 98–100; BMI 29.9
--- NOTE | 2024-08-16 06:37 | P.PNAN_ITS ---
Anes - Initial Pre Proc Eval Procedure: Operation Date: 08/16/24 07:30 Proposed Procedures p Robotic Assisted Total Vaginal Hysterectomy with Bilateral Salpingo- oophorectomy - Dangelo Menjivar MD Date/Time: 08/16/24 06:37 Surgeon: Dangelo Menjivar MD Pre Op Diagnosis: pelvic pain, uterine prolapse, Patient Data Age: 44 Gender: F Height: 1.65 m Weight: 78.2 kg Allergies Allergy/AdvReac Type Severity Reaction Status Date / Time NSAIDS (Non-Steroidal Allergy Severe stomach Verified 08/09/24 13:30 Anti-Inflamma bleed hydroxychloroquine AdvReac Severe Hypertensio Verified 08/09/24 13:30 [From Plaquenil] n tramadol AdvReac Intermediate Nausea Verified 08/09/24 13:30 Chocolate AdvReac Mild Rash Uncoded 08/09/24 13:30 Home Medications Medication Instructions Recorded Confirmed Type methotrexate sodium 2.5 mg tablet 12.5 mg PO WEEKLY 05/16/23 08/09/24 History cyclobenzaprine 10 mg tablet 10 mg PO QHS PRN Spasms 02/28/24 08/09/24 History prednisone 5 mg tablet 2.5 mg PO DAILY PRN Pain 02/28/24 08/09/24 History lisinopril 20 mg tablet See Rx Instructions .Route 05/06/24 08/09/24 Rx .COMPLEX #90 tabs propranolol 40 mg tablet 40 mg PO Q12H PRN migraines #90 05/21/24 08/09/24 Rx tabs semaglutide (weight loss) 2.4 2.4 mg (0.75 mL) subcut WEEKLY #3 05/21/24 08/09/24 Rx mg/0.75 mL subcutaneous pen mL injector ([facility]) Patient hx anesthesia problems: none Family hx anesthesia problems: none Results Review: All pre-operative results and documents have been reviewed as part of the pre- operative evaluation. [facility] Past Medical History Medical History (Updated 08/16/24 @ 06:38 by Dangelo Serrato MD) Abdominal discomfort Anxiety Bloating Diarrhea Hematochezia Hemorrhoid Hypertension Irritable bowel Migraine Rheumatoid arthritis Surgical History Surgical History H/O foot surgery History of shoulder surgery (~03/21/24) Distal Clavicle Excision; Subacromial Decompression Rt Shoulder Family History Family History Father Colon polyp Skin cancer Hypertension Disorder of thyroid Cerebrovascular accident Mother Colon polyp Asthma Heart disease COPD (chronic obstructive pulmonary disease) Son Hypertension Grandparent EtOH dependence Lung cancer Hypertension Grandparent Cerebrovascular accident Social History Social History Social History: Smoking packs per day: 1 Smoking cigarettes per day: 20.0 Years smoked: 10 Smoking pack-years: 10.00 Smoking status: Former smoker Tobacco type: cigarettes Second hand tobacco smoke exposure: No Smoking end date: 10/09/19 Alcohol intake: former Substance use: never Do You Feel Safe in your Home?: Yes Lack of Transportation: No Lack of Food: Never True Current Housing: I Have Housing Concerned About Future Housing: No Difficulty Paying Gas/Electric Bills: No Difficulty Paying for Meds: No Currently Unemployed: No Education: Decline to Answer Difficulty w/ Childcare or Family Care: No Living arrangements: with family Occupation/Education: occupation 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 Gender identity (if verbalized by the patient): Female Sexual Orientation (if Verbalized by the Patient): Straight or Heterosexual Spiritual care concerns: No Agree to blood products: Yes Anes - Eval Final PreProcedure Day of Procedure 08/16/24 06:37 Patient weight: overweight Heart: regular rate and rhythm Lungs: clear to auscultation Airway: Mallampati scale class II Neurological: alert and oriented Last oral intake: >/= 8 hours ASA classification: III Emergent: no Anesthetic plan: proceed Anesthesia type and monitoring: general ETT and standard monitoring Results Review: All pre-operative results and documents have been reviewed as part of the pre- operative evaluation. Informed Consent: The patient's anesthetic plan and its attendant risks and benefits were discussed with the patient/family/POA. Questions were solicited and answers provided to the satisfaction of the patient/family/POA.
[2024-08-16] MEDS: LACTATED RINGERS 1,000 ML 30 ML IV CONT ×2 (06:45→08:28)
--- NOTE | 2024-08-16 06:46 | WPDHPUPDATE1 ---
History and Physical Update Update Date/Time: 08/16/24 06:46 History and Physical has been reviewed, including an updated exam of the patient. There are NO changes in the patient's condition. Risks, benefits, and alternatives have been discussed and questions answered. Patient agrees to proceed with procedure.
[2024-08-16] MEDS: ACETAMINOPHEN 500 MG TABLET 1000 MG PO ×3 (06:58→19:46)
[2024-08-16] MEDS: KETOROLAC 15 MG/ML VIAL (*BKC) IV PUSH (06:59)
[2024-08-16] MEDS: SCOPOLAMINE 1 MG PATCH 1 PATCH TRANSDERM (06:59)
[2024-08-16 07:12] LABS: BEDSIDEPREGUCG Negative (Negative)
[2024-08-16] MEDS: ceFAZolin 2 GM/D5W 50 ML 2 GM/50 ML BAG IVPB (07:22)
--- NOTE | 2024-08-16 08:22 | P.OP_ITS ---
Procedure Note - Detailed Date of Procedure 08/16/24 Pre-op Diagnosis pelvic pain, uterine prolapse, Post-op Diagnosis Same Procedure Performed Robotic total vaginal hysterectomy and bilateral salpingo-oophorectomy Surgeon Dangelo Menjivar MD Anesthesia General Indications 44-year-old female pain prolapse Findings fibroid uterus. Normal-appearing ovaries and tubes Description of Procedure patient was prepped draped in the normal sterile fashion placed in the dorsal lithotomy position. Under excellent general trach anesthesia weighted speculum placed in posterior fornix vagina. Anterior lip of cervix grasped with single- tooth tenaculum. Uterus sounded to 8cm. Serial dilatation fragmented dilators performed followed by passage of 6. PHILIPPE and the 3. Cold cup. Next the 16 Indonesian catheter was placed in the bladder drained clear urine weighted speculum and the single-tooth removed. The gloves were changed. Supraumbilical incision made the Veress needle passed in the abdomen. Abdomen filled with CO2 gas 15mmHg. The 8mm trocar advanced in the abdomen. Downside visualized no injury seen. Patient placed in Trendelenburg and right left lateral quadrant incisions made. The 8mm trocars advanced under direct visualization assuring no injury. A right upper quadrant incision made the 8mm trocar advanced under direct visualization assuring no injury. The robot was docked. Attention was turned to the console. The left round ligament was grasped, burned, cut. Bladder flap was formed by sharply dissecting the peritoneum and reflecting the bladder caudally away from the cervix uterus and to the opposite round ligament which was clamped, burned, cut. Next the left infundibulopelvic structure was skeletonized clamping burning cutting and removing the left ovary and tube. Next the infundibulopelvic structure on the right was skeletonized clamping burning cutting and bringing this to the previously cut round ligament. Cardinal broad ligaments on the left were serially skeletonized clamping burning cutting and bringing this down the lateral edge of the uterus until the uterine vessels could be seen on the left. These were individually clamped, burned, cut. In similar fashion on the right the cardinal broad ligaments were skeletonized clamping burning cutting and hugging the cervix uterus until the uterine vessels could be seen on the right. These were individually clamped, burned, cut. Blanching the uterus was noted and a colpotomy incision made. Cervix uterus ovaries and tubes removed through the vagina. The vagina then closed with continuous running 0V lock from lateral edge to lateral edge back to the midline. Irrigation undertaken until clear and [place] term placed over the raw surface area. Hemostasis was assured the robot was undocked. The gas re moved from the abdomen. The incisions then closed after the trocars removed with mod of 3-0 Monocryl and glue. The patient was awakened went recovery in satisfactory condition. All sponge, needle, instrument counts were correct. There were no immediate complications Estimated Blood Loss 25 Drains No Packing No Pathology Yes Complications No immediate complications Condition Stable Disposition PACU
--- NOTE | 2024-08-16 08:27 | PM.DS ---
DS: Admitting Diagnosis Discharge Date 08/17/2020 Admitting Diagnosis uterine prolapse and pelvic pain DS: Discharge Diagnosis Discharge Diagnosis (1) Pelvic pain: Code(s): R10.2 - Pelvic and perineal pain Status: Acute (2) Uterine prolapse: Code(s): N81.4 - Uterovaginal prolapse, unspecified Status: Acute DS: Summary Hospital Course Reason for hospitalization: patient was admitted for robotic total vaginal hysterectomy and bilateral salpingo-oophorectomy on 08/16/2024. Hospital Course: The patient's hospital course unremarkable. She remained afebrile. She was up, voiding without difficulty, eating regular diet, ambulating, and generally without complaints. Time Spent with Patient Time attestation: Total time spent providing and/or coordinating discharge services: Exam Const: General: cooperative, healthy appearing and comfortable Orientation/consciousness: oriented to person, oriented to place and oriented to time HENMT: Head: normal to inspection Resp: Effort & Inspection: normal respiratory effort Cardio: Rate: regular rate Rhythm: regular rhythm Heart sounds: S1 normal heart sound present and S2 normal heart sound present GI: Inspection: normal to inspection and incision ( Wounds are clean dry and intact) DS: Data Data Completed and Pending Pending studies at discharge: Pending at discharge 08/16/24 08:05 Surgical [PTH] Routine Labs on day of discharge: Labs from last 24 hours 08/16/24 07:08 POC Urine HCG, Qual Negative Discharge Plan Discharge Patient Disposition: Home, Self-Care Stand Alone Forms: General Discharge Instructions Follow-up/Referrals: Dangelo Lam MD [Physician] - Discharge Medications: New hydrocodone-acetaminophen 5-300 mg tablet 1 tablet PO Q4H PRN (Reason: pain) Qty: 20 0RF No Action cyclobenzaprine 10 mg tablet 10 mg PO QHS PRN (Reason: Spasms) prednisone 5 mg tablet 2.5 mg PO DAILY PRN (Reason: Pain) Wegovy 2.4 mg/0.75 mL pen injector 2.4 mg subcut WEEKLY Qty: 3 6RF Rx Instructions: Mondays propranolol 40 mg tablet 40 mg PO Q12H PRN (Reason: migraines) Qty: 90 3RF methotrexate sodium 2.5 mg Tablet 12.5 mg PO WEEKLY Rx Instructions: MONDAY AM/HS lisinopril 20 mg tablet See Rx Instructions .ROUTE .COMPLEX Qty: 90 1RF Dose Instruction: TAKE 1 TABLET DAILY Rx Instructions: TAKE 1 TABLET DAILY
[2024-08-16] MEDS: fentaNYL CITRATE INJ (*CRX) 100 MCG/2 ML VIAL 25 MCG IV PUSH ×4 (08:52→09:11)
--- NOTE | 2024-08-16 09:45 | PC.NURSE ---
[facility]cher on 08/16/24 at 0945. Patient/family oriented to unit policies and routines.
[2024-08-16] MEDS: oxyCODONE HCL (*CRX) 5 MG TAB IR PO ×2 (10:48→14:41)
[2024-08-16] MEDS: DOCUSATE SODIUM 100 MG CAPSULE PO ×2 (10:50→17:22)
[2024-08-16] MEDS: SIMETHICONE 80 MG TAB.CHEW PO ×2 (13:14→17:22)
[2024-08-16] MEDS: KETOROLAC 30 MG/ML VIAL (*BKC) IV PUSH ×2 (13:15→19:46)
[2024-08-16] MEDS: PROPRANOLOL HCL 40 MG TABLET PO (21:12)
[2024-08-17] VITALS: BP 95/55; PULSE 64; RESP 18; TEMP 37; O2SAT 97
[2024-08-17] MEDS: ACETAMINOPHEN 500 MG TABLET 1000 MG PO ×2 (02:02→07:39)
[2024-08-17] MEDS: KETOROLAC 30 MG/ML VIAL (*BKC) IV PUSH (02:02)
[2024-08-17 04:38] LABS: Basophils Percent Auto 0.1 % (0.2-1.2); Eosinophils Percent Auto 0.1 % (0-4.4); Hematocrit 37.7 % (37.0-47.0); Hemoglobin 13.1 g/dL (12.0-15.0); Immature Granulocyte Absolute 0.06 K/mm3 (0.00-0.031); Immature Granulocyte Percent A 0.4 % (0-0.5); Lymphocytes Absolute Auto 2.68 K/mm3 (0.9-3.2); Mean Corpuscular HGB Conc 34.7 g/dl (32-36); Mean Platelet Volume 11.5 fl (7.4-10.4); Monocytes Absolute Auto 0.7 K/mm3 (0.1-0.6); Monocytes Percent Auto 4.6 % (2.6-8.5); Neutrophils Absolute Auto 12.3 K/mm3 (1.3-6.7); Neutrophils Percent Auto 77.8 % (45.5-73.1); Platelet Count Result 222 k/mm3 (150-375); Red Cell Distribution Width 13.2 % (11.5-14.5); White Blood Count 15.7 K/mm3 (4.5-10.0)
[2024-08-17 04:40] VITALS: BP 89/56; PULSE 58; RESP 16; TEMP 37.1; O2SAT 98
--- NOTE | 2024-08-17 06:53 | P.PNAN_ITS ---
Anes - Prog Note Post-Op Date/Time: 08/17/24 06:53 Cardiovascular status: normal Respiratory status: normal Airway patency: baseline Mental status: baseline Post-Op hydration status: normal Vital Signs: Last Vital Signs Temp 98.8 F 08/17/24 04:40 Pulse 58 L 08/17/24 04:40 Resp 16 08/17/24 04:40 BP 89/56 L 08/17/24 04:40 Pulse Ox 98 08/17/24 04:40 O2 Del Method Room Air 08/16/24 09:40 O2 Flow Rate 6 08/16/24 09:10 Pain Score (VAS): 4 I/O: Intake & Output 08/16/24 08/16/24 08/17/24 15:59 23:59 07:59 Intake Total 800 1000 720 Output Total 878 374 5412 Balance 700 220 -330 Laboratory Tests 08/17/24 04:27 08/16/24 08/17/24 07:08 04:27 WBC 15.7 H RBC 4.10 L Hgb 13.1 Hct 37.7 MCV 92.0 MCH 32.0 MCHC 34.7 RDW 13.2 Plt Count 222 MPV 11.5 H Immature Gran % (Auto) 0.4 Neut % (Auto) 77.8 H Lymph % (Auto) 17.0 L [place] % (Auto) 4.6 Eos % (Auto) 0.1 Baso % (Auto) 0.1 L Lymph # (Auto) 2.68 [place] # (Auto) 0.7 H Eos # (Auto) 0.0 Baso # (Auto) 0.0 Abs Immat Gran (auto) 0.06 H Absolute Neuts (auto) 12.3 H Absolute Nucleated RBC 0.000 Nucleated RBC % 0.0 POC Urine HCG, Qual Negative Post-procedural complaints: none Patient Feedback: Patient satisfied with anesthetic care.
[2024-08-17] MEDS: oxyCODONE HCL (*CRX) 5 MG TAB IR PO ×2 (07:01→12:02)
[2024-08-17] MEDS: DOCUSATE SODIUM 100 MG CAPSULE PO (07:01)
[2024-08-17] MEDS: ENOXAPARIN 40 MG/0.4 ML SYRINGE SUB-Q (07:02)
[2024-08-17] MEDS: SIMETHICONE 80 MG TAB.CHEW PO ×2 (07:10→12:02)
[2024-08-17 07:18] VITALS: BP 93/54; PULSE 61; RESP 16; TEMP 36.7; O2SAT 100
[2024-08-17] MEDS: IBUPROFEN 600 MG TABLET PO (07:39)
--- NOTE | 2024-08-17 11:12 | PM.GYNPNOP ---
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- PN:Subj Post-Op Subjective Date/time seen: 08/17/24 11:12 Subjective: patient has no complaints, pain is well controlled and patient is tolerating oral intake Exam Narrative: inc c/d/i abdomen soft, nt, nd 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 - PN: Obj Data Vital Signs Vital Signs: Vital Signs - 24 hr 08/16/24 16:02 08/16/24 21:12 08/16/24 20:00 Temperature 97.3 F L 98.5 F Pulse Rate 77 70 70 Respiratory Rate 16 16 Blood Pressure 119/66 102/68 Pulse Oximetry 100 98 08/17/24 00:00 08/17/24 04:40 08/17/24 07:18 Temperature 98.6 F 98.8 F 98.0 F Pulse Rate 64 58 L 61 Respiratory Rate 18 16 16 Blood Pressure 95/55 L 89/56 L 93/54 L Pulse Oximetry 97 98 100 Intake/Output Intake/Output: Intake & Output 08/14/24 08/15/24 08/16/24 08/17/24 23:59 23:59 23:59 23:59 Intake Total 1850 920 Output Total 880 1050 Balance 970 -130 Meds/Results Medications: Active Medications Generic Name Dose Route Start Last Admin Trade Name Freq PRN Reason Stop Dose Admin Acetaminophen 1,000 mg 08/16/24 12:00 08/17/24 07:39 Acetaminophen 500 Mg Tablet PO 1,000 mg Q6HR MATTHEW Administration Docusate Sodium 100 mg 08/16/24 09:40 08/17/24 07:01 Docusate Sodium 100 Mg Capsule PO 100 mg BID MATTHEW Administration Enoxaparin Sodium 40 mg 08/17/24 07:00 08/17/24 07:02 Enoxaparin 40 Mg/0.4 Ml Syringe SUB-Q 40 mg DAILY MATTHEW Administration Ibuprofen 600 mg 08/17/24 06:00 08/17/24 07:39 Ibuprofen 600 Mg Tablet PO 600 mg Q6HR MATTHEW Administration Lisinopril 20 mg 08/17/24 09:00 Lisinopril 20 Mg Tablet PO QAM MATTHEW Naloxone HCl 0.1 mg 08/16/24 09:40 Naloxone Hcl 0.4 Mg/Ml Vial IV PUSH Q2M PRN Respiratory rate less than 10 Ondansetron HCl 4 mg 08/16/24 09:40 Ondansetron Inj 4 Mg/2 Ml Vial IV PUSH Q6H PRN Nausea And Vomiting Oxycodone HCl 5 mg 08/16/24 09:40 08/17/24 07:01 Oxycodone Hcl (*Crx) 5 Mg Tab Ir PO 5 mg Q4H PRN Administration Pain Rated 4-6 Oxycodone HCl 10 mg 08/16/24 09:40 Oxycodone Hcl (*Crx) 5 Mg Tab Ir PO Q6H PRN Pain Rated 7-10 Propranolol HCl 40 mg 08/16/24 21:00 08/16/24 21:12 Propranolol Hcl 40 Mg Tablet PO 40 mg Q12HR MATTHEW Administration Simethicone 80 mg 08/16/24 12:00 08/17/24 07:10 Simethicone 80 Mg Tab.Chew PO 80 mg TIDWM MATTHEW Administration Labs 08/17/24 04:27 Labs: Laboratory Results - last 24 hr 08/17/24 04:27 WBC 15.7 H RBC 4.10 L Hgb 13.1 Hct 37.7 MCV 92.0 MCH 32.0 MCHC 34.7 RDW 13.2 Plt Count 222 MPV 11.5 H Immature Gran % (Auto) 0.4 Neut % (Auto) 77.8 H Lymph % (Auto) 17.0 L [place] % (Auto) 4.6 Eos % (Auto) 0.1 Baso % (Auto) 0.1 L Lymph # (Auto) 2.68 [place] # (Auto) 0.7 H Eos # (Auto) 0.0 Baso # (Auto) 0.0 Abs Immat Gran (auto) 0.06 H Absolute Neuts (auto) 12.3 H Absolute Nucleated RBC 0.000 Nucleated RBC % 0.0
== END 2024-08-17 12:06 | disposition home or self-care (01) ==
LOC: ANHSURGERY 06:48 → ANHOB2 10:24
PROVIDERS: PCP Nurse Practitioner Adult Health; Visit Provider Obstetrics & Gynecology
PROC: (CPT 58552; principal; 2024-08-16 07:30)
DX: N81.4 Uterovaginal prolapse, unspecified (principal); D25.2 Subserosal leiomyoma of uterus; N80.03 Adenomyosis of the uterus; I10 Essential (primary) hypertension; F41.9 Anxiety disorder, unspecified; K58.9 Irritable bowel syndrome, unspecified; M06.9 Rheumatoid arthritis, unspecified; Z79.52 Long term (current) use of systemic steroids; Z79.85 Long-term (current) use of injectable non-insulin antidiabetic drugs; Z98.890 Other specified postprocedural states; Z87.891 Personal history of nicotine dependence; Z83.719 Family history of colon polyps, unspecified; Z84.0 Family history of diseases of the skin and subcutaneous tissue; Z80.1 Family history of malignant neoplasm of trachea, bronchus and lung; Z82.49 Family history of ischemic heart disease and other diseases of the circulatory system
CPT/HCPCS: 58552; S2900; 36415; 85025; 86850; 86900; 86901; 88307; 93005; 99199; A9270; J0690; J1100; J1171; J1650; J1885; J2003; J2250; J2405; J2704; J3010; J7030; J7120

== ENCOUNTER 2024-08-21 08:50 | Outpatient (CLI) | payer OTHER, SELFPAY ==
--- NOTE | ~2024-08-21 | XR_ITS ---
XR foot LT min 3V Ordering provider: Sheridan Ruiz APRN History: . post surg on 08/02, still having pain -removed bone/1st digit . Comparison: None. FINDINGS: BONES: No acute fracture or dislocation. Bony protrusion is seen medially in the base of the distal p halanx of the left big toe. JOINT SPACES: Osteoarthritic changes of the first metatarsophalangeal joint. No tarsal coalition. SOFT TISSUES: Normal. IMPRESSION: No acute osseous abnormality left foot. Small bony protrusion is seen near to the base of the distal phalanx of the left big toe. Osteoarthritic changes of the first metatarsophalangeal joint. Reviewed, dictated and finalized at location A. GRATION ENGINEER IMPRESSION: No acute osseous abnormality left foot. Small bony protrusion is seen near to the base of the distal phalanx of the lef t big toe. Osteoarthritic changes of the first metatarsophalangeal joint.
[2024-08-21 20:28] LABS: Basophils Percent Auto 0.5 % (0.2-1.2); Eosinophils Absolute Auto 0.2 K/mm3 (0-0.3); Hematocrit 43.2 % (37.0-47.0); Hemoglobin 14.2 g/dL (12.0-15.0); Immature Granulocyte Absolute 0.04 K/mm3 (0.00-0.031); Immature Granulocyte Percent A 0.5 % (0-0.5); Lymphocytes Absolute Auto 2.45 K/mm3 (0.9-3.2); Lymphocytes Percent Auto 29.2 % (18.3-44.2); Mean Corpuscular HGB Conc 32.9 g/dl (32-36); Mean Corpuscular Hemoglobin 32.3 pg (26-34); Mean Corpuscular Volume 98.4 fl (80-100); Mean Platelet Volume 11.5 fl (7.4-10.4); Monocytes Absolute Auto 0.6 K/mm3 (0.1-0.6); Monocytes Percent Auto 7.6 % (2.6-8.5); Neutrophils Absolute Auto 5.1 K/mm3 (1.3-6.7); Neutrophils Percent Auto 60.2 % (45.5-73.1); Platelet Count Result 270 k/mm3 (150-375); Red Blood Count 4.39 M/mm3 (4.2-5.4); Red Cell Distribution Width 13.4 % (11.5-14.5); White Blood Count 8.4 K/mm3 (4.5-10.0)
[2024-08-21 20:47] LABS: Alanine Aminotransferase 72 U/L (6-35); Alkaline Phosphatase 80 U/L (38-126); Anion Gap 10 mmol/L (4-12); Aspartate Amino Transferase 66 U/L (14-36); Bilirubin,Total 0.5 mg/dL (0.2-1.3); Blood Urea Nitrogen 19 mg/dL (7-17); Calcium 9.9 mg/dL (8.4-10.2); Carbon Dioxide 27 mmol/L (22-30); Chloride 101 mmol/L (98-107); Estimated Glomerular Filt Rate > 60; Glucose 76 mg/dL (65-110); Potassium 4.8 mmol/L (3.4-5.0); Sodium 138 mmol/L (137-145)
== END 2024-08-21 08:51 | disposition home or self-care (01) ==
PROVIDERS: PCP Nurse Practitioner Adult Health; Visit Provider Nurse Practitioner Adult Health
DX: M19.072 Primary osteoarthritis, left ankle and foot (principal); L74.9 Eccrine sweat disorder, unspecified
CPT/HCPCS: 36415; 73630; 80053; 84443; 85025

== ENCOUNTER 2025-03-06 15:46 | Outpatient (CLI) | payer OTHER, SELFPAY ==
--- OUTSIDE RECORDS SUMMARY | 2025-03-06 16:02 | XMS_ITS | Continuity of Care Document ---
Author Organization [facility] Address [address] [place] [address] Phone Care Team Providers Care Cable Television Installer Name Role Phone Luiz Hardin DPM Unavailable Unavailable Allergies, Adverse Reactions, Alerts Substance Reaction Status Criticality tramadol Active No Information Medications Medication Instructions Dosage Effective Dates (start - stop) Status Comments Percocet 5 mg-325 mg tablet take 1 tablet by oral route every 4-6 hours as needed - Active hydrocodone 7.5 mg-acetaminophen 300 mg tablet - Active promethazine 25 mg tablet take 1 tablet by oral route every 4 - 6 hours as needed 25 MG - Active doxycycline hyclate 100 mg tablet take 1 tablet by oral route 2 times every day 100 MG - Active enoxaparin 40 mg/0.4 mL subcutaneous syringe inject 0.4 milliliter by subcutaneous route every day 40 MG - Active Percocet 5 mg-325 mg tablet take 1 tablet by oral route every 4-6 hours as needed - No Longer Active Advance Directives Directive Yes / No Effective Date File Name No Information Encounters Encounter Description Practice Location Reason(s) For Visit Diagnoses Date Provider Providers Copied on Encounter [facility] , [address] [address], [place], [address], [place] tel:[phone] [facility] [place] Pain in right ankle and joints of right footPain in right foot [address] [place], [place], [id number] . tel:[phone] [facility] , [address] [facility] [address], [place], [address], [place] tel:[phone] [facility] Kp Chung Pain in right ankle and joints of right footPain in right footPrimary osteoarthritis of right foot [address] [facility] Mario Albertoabhijit O NASRIN Chung, [id number] . tel:[phone] Family History Family Member Type Diagnosis Age At Onset Problem (finding) Family history of Arthr itis Payers Payer name Insurance type Covered alliance party ID Authoriza tion(s) No Information Social History Type Description Quantity Date Captured Comments Sex Female Smoking Status No Information Chief Complaint And Reason For Visit No Information Reason For Referral Reason For Referral No Information History Of Present Illness Encounter Date Complaint History Of Prese nt Illness No Information Functional Status Date Functional Assessmen t No Information Instructions Date Instruction Additional Infor mation No Information Assessments Type Assessment Date No Information Patient Care Teams Name Effective Dates (start - stop) Status Members No Information
--- OUTSIDE RECORDS SUMMARY | 2025-03-06 16:02 | XMS_ITS | Continuity of Care Document ---
Author Organization [facility] Address [address] [place] [address] [place] [address] Phone Care Team Providers Care Sales Center Manager Name Role Phone Jude Holden MD Unavailable Unavailable Allergies, Adverse Reactions, Alerts Substance Reaction Status Criticality COCOA EXTRACT Skin irritation Active No Informat ion Medications Medication Instructions Dosage Effective Dates (start - stop) Status Comments propranolol 40 mg tablet take 1 tablet by oral route 2 times every day 40 MG - Active lisinopril 20 mg tablet take 1 tablet by oral route every day 20 MG - Active methotrexate sodium 2.5 mg tablet take 5 tablet by oral route every week 12.5 MG - Active tramadol 50 mg tablet take 1 tablet by oral route every 6 hours as needed as needed 50 MG - Active PRN for pain cyclobenzaprine 10 mg tablet take 1 tablet by oral route 2 times every day as needed 10 MG - Active PRN for pain Norvasc 5 mg tablet take 1 tablet by oral route every day 5 MG - Active PRN for raynaud Medrol (Marc) 4 mg tablets in a dose pack take by oral route as directed per package instructions 0.00 - Active codeine 10 mg-guaifenesin 100 mg/5 mL oral liquid take 5 milliliter by oral route every 4 hours as needed as needed 5 milliliter - Active PRN for cough, avoid driving or operate machines Procedures Procedure Date PREV VISIT, NEW, AGE 40-64 PREV VISIT, EST, AGE 18-39 OFFICE/OUTPATIENT VISIT, EST OFFICE/OUTPATIENT VISIT, EST Advance Directives Directive Yes / No Effective Date File Name No Information Encounters Encounter Description Practice Location Reason(s) For Visit Diagnoses Date Provider Providers Copied on Encounter PREV VISIT, NEW, AGE 40-64 [facility], [address], [place], [place], [id number], [place] tel:[phone] [facility] physical (chief complaint) Encounter for general adult medical examination without abnormal findings 3 Navin Roque. [address], [place], [place], [id number] , [place]. tel:[phone] [facility], [address], [place], [place], [id number], [place] tel:[phone] [facility] No Information 4 Navin Jose [address], [place], [place], [address] , [place]. tel:[phone] PREV VISIT, EST, AGE 18-39 [facility], [address], [place], [place], [id number], [place] tel:[phone] [facility] Physical (chief complaint) Dietary surveillance and counselingRoutine Medical ExamAcute upper respiratory infections of other multiple sitesAcute laryngitis without mention of obstructionRoutine Medical Exam 4 Navin Jose [address], [place], [place], [id number] , [place]. tel:[phone] Referring Provider: Earlene Bustillo [address], [place], [place], [id number]. tel:[phone] OFFICE/OUTPA TIENT VISIT, EST [facility], [address], [place], [place], [id number], [place] tel:[phone] [facility] cellulitis (chief complaint)t oe pain (chief complaint) Dietary surveillance and counselingCellulit is and abscess of facePain in joint involving lower leg 2 Navin Jose [address], [place], [place], [address] , . tel:[phone] Referring Provider: [address], [place], [place], [id number]. tel:[phone] Family History Family Member Type Diagnosis Age At Onset Mother Problem (finding) hypothyroidism Sister Problem (finding) GERD,. mental retardati on Father Problem (finding) Hypertension Payers Payer name Insurance type Covered green party ID Authoriza tion(s) No Information Social History Type Description Quantity Date Captured Comments Alcohol Use Details Caffeine Use Details Unknown Tobacco Use Status Ex-cigarette smoker 023 Smoking Status Former smoker Smoking Tobacco Use Details Cigarette: Age Started: 16, Age Stopped: 40, Years Used 24 Cigarette: 1 Packs per day, Pack Year: 24 Sex Female Vital Signs Date / Time: Height Weight BMI Pulse Rate Blood Pressure Temperature Respiratory Rate Body Surface Area Head Circumference BMI percentile Pulse Ox Inhaled Ox 3:24 PM 65.00 in 197.40 lbs 32.8 5 kg/m eter (2) 76 /min 120/80 mm[Hg] 98.2 F 16 /min Chief Complaint And Reason For Visit From encounter dated 11/07/2022 15:23'. physical (chief complaint). Description: Pt needs annual physical. Pt has RA. Pt takes methotrexateand prednisone PRN as well as tramadol and flexeril PRn for pain. Pt uses Simponi infusion every 8 weeks. Pt sees image consultant. Pt has HTN and migraine Pt takes propranolol and lisinopril and she is doing well with above meds Pt denies any headache while on propranolol. her bp is ok. Pt has raynaud and she takes norvasc PRn only. Pt c/o acute sinus infection for two weeks. Pt failed OTC meds. Pt has purulent sinus drainage. Pt has mild dry cough. Pt tested negative for COVID. Pt denies any sore throat, sob, or headache Pt denies any fever Pt states that she usually gets Z-marc and cheratussin cough syrup and medrol dose marc for above symptoms which usually works well. Pt denies any other complaints. Plan Of Treatment Date Type Action Status Goal Depression screening. Due on due Goal Influenza vaccine. Due on due Goal Pap/HPV testing. Due on due Goal Td vaccine. Due on due Goal Tdap. Due on due Goal Tobacco cessation counseling completed Referral Ordered: MAMMOGRAM, SCREENING ordered History Of Present Illness Encounter Date Complaint History Of Prese nt Illness physical Pt needs annual physical. Pt has RA. Pt takes methotrexate and prednisone PRN as well as tramadol and flexeril PRn for pain. Pt uses Simponi infusion every 8 weeks. Pt sees image consultant. Pt has HTN and migraine Pt takes propranolol and lisinopril and she is doing well with above meds Pt denies any headache while on propranolol. her bp is ok. Pt has raynaud and she takes norvasc PRn only. Pt c/o acute sinus infection for two weeks. Pt failed OTC meds. Pt has purulent sinus drainage. Pt has mild dry cough. Pt tested negative for COVID. Pt denies any sore throat, sob, or headache Pt denies any fever Pt states that she usually gets Z-marc and cheratussin cough syrup and medrol dose marc for above symptoms which usually works well. Pt denies any other complaints. Instructions Date Instruction Additional Infor jaxon Dietary counseling Related to Di etary surveillance counseling Decrease caloric intake Related to Dietary surveillance counseling Dietary counseling Related to Di etary surveillance counseling Decrease caloric intake Related to Dietary surveillance counseling Assessments Type Assessment Date assessment Encounter for nova l adult medical examination without abnormal findings Mental Status Date Cognitive Assessment Orientation - [place] ed to time, place, person, situation.
== END 2025-03-06 15:47 | disposition home or self-care (01) ==
LOC: ANHBWCIMG 15:47
PROVIDERS: PCP Nurse Practitioner Adult Health; Visit Provider Nurse Practitioner Adult Health
DX: S89.92XA Unspecified injury of left lower leg, initial encounter (principal); X58.XXXA Exposure to other specified factors, initial encounter
CPT/HCPCS: 73562

== ENCOUNTER 2025-08-12 15:18 | Outpatient (CLI) | payer OTHER, SELFPAY ==
[2025-08-12 18:45] LABS: Alanine Aminotransferase 30 U/L (6-35); Albumin Level 4.1 g/dL (3.5-5.1); Alkaline Phosphatase 126 U/L (38-126); Anion Gap 8 mmol/L (4-12); Aspartate Amino Transferase 39 U/L (14-36); Bilirubin,Total 0.4 mg/dL (0.2-1.3); Blood Urea Nitrogen 23 mg/dL (7-17); Calcium 8.8 mg/dL (8.4-10.2); Carbon Dioxide 25 mmol/L (22-30); Chloride 105 mmol/L (98-107); Cholesterol 233 mg/dL (0-200); Estimated Glomerular Filt Rate 56; Glucose 94 mg/dL (65-110); HDL Direct 34 mg/dL; Potassium 3.9 mmol/L (3.4-5.0); Sodium 138 mmol/L (137-145); Total Protein 8.1 g/dL (6.3-8.2); Triglycerides 511 mg/dL (<150)
[2025-08-12 18:56] LABS: Hematocrit 42.8 % (37.0-47.0); Hemoglobin 14.2 g/dL (12.0-15.0); Mean Corpuscular HGB Conc 33.2 g/dl (32-36); Mean Corpuscular Hemoglobin 31.3 pg (26-34); Mean Corpuscular Volume 94.3 fl (80-100); Platelet Count Result 261 k/mm3 (150-375); Red Blood Count 4.54 M/mm3 (4.2-5.4); White Blood Count 7.1 K/mm3 (4.5-10.0)
[2025-08-12 19:01] LABS: Hemoglobin A1C 5.4 % (<5.7)
[2025-08-12 19:04] LABS: Free T4 Free Thyroxine 0.95 ng/dL (0.78-2.19)
[2025-08-12 19:21] LABS: Thyroid Stimulating Hormone 1.430 uIU/mL (0.465-4.680)
[2025-08-12 19:56] LABS: Vitamin B12 741.0 pg/mL (239-931)
--- OUTSIDE RECORDS SUMMARY | 2025-08-13 02:46 | XMS_ITS | Clinical Summary ---
Author Organization [facility] [employer] Address [address] [facility] [place] [address] Care Team Providers Care Circular Shear Operator Name Role Phone Daria Jackson MD Primary Care Provider [phone] Source Comments [facility],non-owned Affiliates and Associated Physician Practices is amultiple site organization consisting of ambulatory clinics and hospital sitesin [place], [place], [place] and [place]. This disclosure is being madepursuant to the Care Everywhere program and may not contain all information available regarding this patient. Last updated 18.[facility] [employer] Allergies Active Allergy Reactions Criticality Noted Date Comments [place] Rash Medium 07/10/2014 Morphine Nausea and/or Vomiting Low 05/01/2017 May induce headache Tramadol Nausea and/or Vomiting Low 05/01/2017 Medications * Be aware that medications may not be up to date on this document. Alwaysverify current medications with the patient. hydroxychloroqu ine (PLAQUENIL) 200 MG tablet Take 400 mg by mouth DAILY. 60 tablet 4 07/26/2017 Active aspirin-acetami nophen-caffeine 250-250-65 MG tablet Take 2 tablets by mouth. 05/01/2017 Active meloxicam (MOBIC) 7.5 MG tablet Take 7.5 mg by mouth DAILY. 30 tablet 2 05/01/2017 Active Active Problems Problem Noted Date Diagnosed Date Personal history of other di seases of the nervous system and sense organs 05/10/2017 Elevated erythrocyte sedimentation rate 05/01/20 17 Chronic fatigue 05/01/2017 Other specified abnormal immunological findings in serum 05/01/2017 Pain in joint 05/01/2017 Nonscarring hair loss 05/01/2017 Family History Medical History Relation Name Comments Cancer - Skin, Non Melanoma Father Status: Alive Hypertension Father Arthritis - Osteo Mother Other - Cardiac Mother irreg pulse requiring shock therapy Thyroid Disease Mother Arthritis - Rheumatoid Paternal Grandfather Anxiety Disorder Son Ankylosing Spondylitis Neg Hx Lupus Neg Hx Psoriasis Neg Hx Relation Name Status Comments Father Mother Paternal Grandfather Son Social History Tobacco Use Types Packs/Day Years Used Date Smoking Tobacco: Every Day Cigarettes 29.9 Started: 09/25/1995 Smokeless Tobacco: Never Alcohol Use Standard Drinks/Week Comments Yes 0 (1 standard drink = 0.6 oz pur e alcohol) Comments Unknown Sex and Gender Information Value Date Recorded Sex Assigned at Not on file 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 Gender Identity Not on file Sexual Orientation Not on file Last Filed Vital Signs Vital Sign Reading Time Taken Comments Blood Pressure 140/94 05/10/2017 3:31 PM CDT Pulse 80 05/10/2017 3:31 PM CDT Temperature 36.5 C (97.7 F) 05/10/2017 3:31 PM CDT Respiratory Rate 18 05/10/2017 3:31 PM CDT Oxygen Saturation - - Inhaled Oxygen Concentration - - Weight 83.9 kg (185 lb) 05/10/2017 3:31 PM CDT Height 162.6 cm (5' 4) 05/10/2017 3:31 PM CDT Body Mass Index 31.76 05/10/2017 3:31 PM CDT Plan of Treatment Health Maintenance Due Date Last Done Comments COLOGUARD (AGES 45-75) - COL ON CA SCREENING 1978 COLON MONITORING 1978 COLONOSCOPY - COLON CA SCREENING 1978 CT COLONOGRAPHY - COLON CA SCREENING 1978 Colorectal Cancer Screening 1978 FIT - COLON CA SCREENING 1978 FLEX SIG - COLON CA SCREENING 1978 LIPID TESTING 1978 MAMMOGRAM 1978 HIV SCREENING 1993 DTAP/TDAP/TD VACCINES (1 - Tdap) 1997 HEPATITIS B VACCINE (1 of 3 - 19+ 3-dose series) 1997 PNEUMOCOCCAL VACCINE (1 of 2 - PCV) 1997 Cervical Cancer Screening 1999 PAP SMEAR 1999 PAP with HPV 02/08/2008 DEPRESSION SCREENING 09/25/2024 COVID-19 VACCINE (1 - 2024-2 6 season) 2025 INFLUENZA VACCINE (#1) 2025 06/26/2014 ZOSTER VACCINE (1 of 2) 02/08/2028 HEPATITIS C SCREENING Completed 05/01/2017 HIB VACCINE Aged Out No longer eligi ble based on patient's age to complete this topic HPV VACCINE Aged Out No longer eligi ble based on patient's age to complete this topic MENINGOCOCCAL (Group B) VACC INE SHARED DECISION-MAKING Aged Out No longer eligibl e based on patient's age to complete this topic MENINGOCOCCAL GROUPS A/C/Y/W VACCINE Aged Out No longer eligible b ased on patient's age to complete this topic Procedures Procedure Name Priority Date/Time Associated Diagnosis Comments HEPATITIS C ANTIBODY Routine 05/01/2017 1:40 PM CDT from Last 3 Months or Most Recently Relevant to Health Maintenance Results * HEPATITIS C ANTIBODY (05/01/2017 1:40 PM CDT) Hepatitis C Antibody Non-react [facility] Comment: Hepatitis C Antibody screen indicates no serologic evidence of past or current infection with Hepatitis C Virus. Patients with unexplained liver disease who are immunocompromised or suspected of having acute Hepatitis C infection may benefit from Nucleic Acid Test (TORO) for Hepatitis C Viral RNA to confirm Hepatitis C status. Blood specimen (specimen) BLOOD SPECIMEN / Unknown 05/01/2017 1:40 PM CDT 05/01/2017 2:02 PM CDT us [facility] - CHEMISTRY ORDERABLES Fi nal Result [facility] [address] [phone] from Last 3 Months or Most Recently Relevant to Health Maintenance Insurance [employer] AETNA SELF PAY NO INSURANCE Member Subscriber Plan / Payer (Ef fective for All Dates) Name:Jill Thornton Member ID:Not on file Relation to Subscriber:Not on file Name:JILL THORNTON Subscriber ID:Not on file (Home) Address: [facility] [place] [address] Payer ID:Not on file Group ID:Not on file Type:Self Pay Address: [place], [place] [employer] Care Teams Circular Shear Operator Relationship Specialty Start Date End Date Daria Jackson MD [address] [place] [address] [place] [phone] PCP - General 05/17/22
--- OUTSIDE RECORDS SUMMARY | 2025-08-13 02:47 | XMS_ITS | Clinical Summary ---
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 Name Role Phone Misheljuliana Sheridan NOVAK Primary Care Provider [phone] Allergies Active Allergy Reactions Criticality Noted Date Comments Chocolate Hives Medium 11/19/2024 Nsaids (Non-Steroidal Anti-Inflammatory Drug) Other (See comments) High 08/09/2024 Hydroxychloroquine HIT High 12/30/2021 Tramadol Nausea & Vomiting Low 12/30/2021 Tolerates oxycodone Medications propranoloL (INDERAL) 40 mg tablet Take 1 tablet (40 mg total) by mouth 2 (two) times a day Active methotrexate 2.5 mg tablet Take by mouth once a week Take 12.5 mg (5 tablets) by mouth in the morning and 12.5 mg ( 5 tablets) by mouth in the evening every 7 days. This will achieve a total of 25 mg (10 tablets) every 7 days. 11/07/19 23 Active inFLIXimab (REMICADE) 100 mg injection Infuse into a venous catheter Active lisinopriL (PRINIVIL,ZESTRIL) 20 mg tablet Take 0.5 tablets (10 mg total) by mouth daily 10/08/19 25 Active ondansetron ODT (ZOFRAN-ODT) 8 mg disintegrating tablet Take 1 tablet (8 mg total) by mouth every 12 (twelve) hours as needed for vomiting or nausea 11/18/19 25 Active acetaminophen 500 mg capsule Take 2 capsules (1,000 mg total) by mouth every 6 (six) hours 11/20/19 25 Active docusate sodium (COLACE) 100 mg capsuleIndications :constipation Take 1 capsule (100 mg total) by mouth 2 (two) times a day with a glass of water 30 capsule 1 11/20/19 25 Active oxyCODONE (ROXICODONE) 5 mg immediate release tabletIndications: Pain Take 1 tablet (5 mg total) by mouth every 6 (six) hours as needed for pain for up to 8 doses 8 tablet 11/22/19 25 Active Zepbound 5 mg/0.5 mL pen injector INJECT 1 SYRINGE SUBCUTANEOUSLY ONCE A WEEK 04/02/20 25 Active Cosentyx Pen pen injector Inject 1 mL (150 mg total) under the skin once 04/28/20 25 Active traZODone (DESYREL) 50 mg tablet Take 1 tablet (50 mg total) by mouth nightly 04/16/20 25 Active tiZANidine (ZANAFLEX) 2 mg tablet TAKE 1-2 TABLETS BY ORAL ROUTE ONCE A DAY (AT BEDTIME) NEEDED MUSCLE CRAMPS 04/08/20 25 Active predniSONE (DELTASONE) 5 mg tablet TAKE 3 TABLETS BY ORAL ROUTE DAILY X 7 DAYS NEEDED FOR FLARE UPS 01/17/20 25 Active Active Problems Problem Noted Date Diagnosed Date RLQ abdominal pain 11/19/2024 Perforated appendicitis 11/19/2024 Encounters Date Type Department Care Team Description 05/30/2025 9:45 AM CDT Procedure visit [facility] at [address] [id number] Priyank Cain DO Primary osteoarthritis of left knee (Primary Dx) 05/19/2025 Telephone [facility] [address] [place] [id number] Priyank Cain DO 05/13/2025 10:15 AM CDT Office Visit [facility] at [address] [phone] Priyank Cain DO Left knee pain, unspecified chronicity (Primary Dx) from Last 3 Months Surgical History Surgery Date Site/Laterality Comments FOOT SURGERY SHOULDER SURGERY Right HYSTERECTOMY 07/26/2024 - 08/24/2024 Medical History Medical History Date Comments Rheumatoid arthritis (HCC) Hypertension Social History Tobacco Use Types Packs/Day Years Used Date Smoking Tobacco: Former Cigarettes Passive Smoke Exposure: Past Smokeless Tobacco: Never Tobacco Cessation:Counseling Given: Not Answered Alcohol Use Standard Drinks/Week Comments Yes 0 (1 standard drink = 0.6 oz pur e alcohol) AUDIT-C Answer Date Recorded Q1: How often do you have a drink containing alc ohol? Monthly or less 11/19/2024 Q2: How many drinks containi ng alcohol do you have on a typical day when you are drinking? 1 or 2 11/19/2024 Q3: How often do you have si x or more drinks on one occasion? Never 11/19/2024 Personal Safety Answer Date Recorded Have you ever been in or are you currently in a harmful physical or emotional relationship or is someone making you feel afraid or unsafe? Denies 11/19/2024 Comments No Sex and Gender Information Value Date Recorded Sex Assigned at Not on file Legal Sex Female 1:41 AM [employer] Gender Identity Not on file Sexual Orientation Not on file Last Filed Vital Signs Vital Sign Reading Time Taken Comments Blood Pressure 123/86 05/30/2025 10:03 AM CDT Pulse 74 05/30/2025 10:03 AM CDT Temperature 37.1 C (98.7 F) 12/02/2024 1:52 PM CDT Respiratory Rate 17 11/20/2024 12:30 PM [employer] Oxygen Saturation 100% 12/02/2024 1:52 PM CDT Inhaled Oxygen Concentration - - Weight 93.9 kg (207 lb 1.6 oz) 05/30/2025 10:03 AM CDT Height 165.1 cm (5' 5) 05/30/2025 10:03 AM CDT Body Mass Index 34.46 05/30/2025 10:03 AM CDT Plan of Treatment Health Maintenance Due Date Last Done Comments Breast Cancer Screening-Mammogram 1978 Colon Cancer Screening-Colonoscopy 1978 Depression Screening 1978 Hepatitis C Screening 1978 DTaP/Tdap/Td Vaccine (1 - Tdap) 1989 Hepatitis B Screening 02/08/1996 Regular Well Visit/Exam 18-64 02/08/1996 Pneumococcal vaccine <65 (1 of 2 - PCV) 1997 Zoster Vaccine (1 of 2) 1997 Covid-19 Vaccine (3 - Modern a risk series) 01/12/2021 12/15/2020, 11/25/2020 Influenza Vaccine (#1) 2025 , 07/08/2020, 08/07/2019, Additional history exists Procedures Procedure Name Priority Date/Time Associated Diagnosis Comments NM ARTHROCENTESIS ASPIR&/INJ MAJOR JT/BURSA W/O US Routine 05/30/2025 9:45 AM CDT Primary osteoarthritis of left knee from Last 3 Months Results * NM ARTHROCENTESIS ASPIR&/INJ MAJOR JT/BURSA W/O US (05/30/2025 9:45 AM CDT) Narrative Priyank Cain DO - 05/30/2025 9:45 AM CDT Priyank Cain DO 05/30/2025 11:41 AM Large Joint Arthrocentesis: L knee Performed by: Priyank Cain DO Authorized by: Priyank Cain DO Large Joint Injection/Aspiration: Consent Given by: Patient Site marked: the procedure site was marked Timeout: prior to procedure the correct patient, procedure, and site was verified Verbal consent obtained: Yes Written consent obtained: No Supporting Documentation: Indications: Pain Procedure Details: Location: Knee Site: L knee Prep: patient was prepped and draped in usual sterile fashion Prep: patient was prepped using a clean technique Needle Size: 22 G Approach: Anterolateral Ultrasound guided: No Fluroscopic guidance: No Medications: 5 mL lidocaine 20 mg/mL (2 %); 80 mg methylPREDNISolone acetate 80 mg/mL Priyank Cain DO IN CLINIC/BEDSIDE EN[facility] MANCILLA Final Result from Last 3 Months [facility] Advance Directives For more information, please contact: [phone] * Full Code (Latest Code Status on File) Date Activated Date Inactivated Comments 11/19/2024 6:11 PM 11/20/2024 9:26 PM Care Teams Enamel Finisher Relationship Specialty Start Date End Date Sheridan Ruiz NP [facility] [place] [address] PCP - General Nurse Practitioner 12/30/21
== END 2025-08-12 15:19 | disposition home or self-care (01) ==
LOC: ANHLAB 15:19 → ANHBWCLAB 15:21
PROVIDERS: PCP Nurse Practitioner Adult Health; Visit Provider Nurse Practitioner Adult Health
DX: R53.83 Other fatigue (principal); I10 Essential (primary) hypertension; M06.9 Rheumatoid arthritis, unspecified; E66.9 Obesity, unspecified
CPT/HCPCS: 36415; 80053; 80061; 82306; 82607; 82746; 83036; 84439; 84443; 85027; 85652